=== PATIENT | female | born 1940 | race Caucasian/White ===

== ENCOUNTER 2017-10-14 13:00 | Inpatient (IN) | payer MEDICARE, SELFPAY ==
[2017-10-14] VITALS (10 sets, daily range): BP systolic 97–159; BP diastolic 54–91; PULSE 70–82; RESP 16–18; TEMP 35.2–36.4; O2SAT 94–100; BMI 29.9
--- NOTE | 2017-10-14 13:30 | HIP_PTH ---
PATIENT: EVELYN BYRNE LOC: MS3 U#:[id number] AGE/SX: 77/F ROOM: MS321 RE10/14/[address]: Dr. Danilo Yee DO : 1940 BED: 1 DIS: 10/16/2017 SPEC #: [id number] RECD: 10/14/17 18:09 STATUS: JULIA RERobin #: [id number] TRISTON: 10/14/17 13:[address]: Xander Tolentino DEPT: SURGICAL PATHOLOGY RECD BY: Jean Marie Maldonado ENTERED: 10/15/17 11:05 SP TYPE: TOTAL HIP OTHR DR: DO Dr. Shilo Greenberg MD Out of [facility] Doctor Tissues: Hip, NOS Procedures: Decalcification bone/plaque Surgery Specimen Level IV Comments: @ Ordering doctor for DEC edited from to DR.SWIDME Belcher by HETAL at 10/15/17 1452 @ Ordering doctor for SUIV edited from to @ by HETAL at 10/15/17 145 @ Submitting doctor edited from to @ by HETAL at 10/15/17 1452 HEADER OPERATION: Total hip anterior approach PRE-OP DIAGNOSIS: Fracture right hip TISSUE SUBMITTED: Bone and soft tissue MICROSCOPIC DIAGNOSIS Bone and soft tissue, right femoral head: Femoral head, detached pieces of bone and bone reamings with focal area of hemorrhage, clinically fractured right hip. VIRAJ:christine 10/22/17 MICROSCOPIC DESCRIPTION Slides are reviewed. GROSS DESCRIPTION Received is one container designated bone and soft tissue, right femoral head. The specimen consists of a jones femoral head. The femoral head measures 5 x 4.5 x 3.5 cm. The articular surface is smooth. The resection margin is irregular and hemorrhagic. Also present in the specimen container are multiple detached pieces of bone including bone reamings measuring in aggregate 9 x 7 x 3 cm. Glass Maker sections are submitted in three cassettes as follows: 1 ? bone reamings, 2 ? detached piece of bone, 3 ? femoral head after decalcification. / VIRAJ:christine 10/15/17 TC:5 CPT: 37547, 56319
[2017-10-14] MEDS: Celecoxib 200 MG Capsule 400 MG PO (13:50)
[2017-10-14] MEDS: Acetaminophen 500 MG Tablet 1000 MG PO ×2 (13:50→20:09)
--- NOTE | 2017-10-14 13:53 | SUR.PREOP ---
FC 16 FR INSERTED WITHOUT DIFFICULTY 800 CC DRAINED. PT ESDRAS WELL
[2017-10-14] MEDS: Scopolamine 1mg/72hr Patch 1 PATCH TD (14:15)
--- NOTE | 2017-10-14 14:47 | PCM.HP.STD ---
Problem List (1) Hypertension Status: Chronic (2) Anxiety Status: Chronic (3) Depression Status: Chronic (4) GERD (gastroesophageal reflux disease) Status: Chronic History of Present Illness Date of Admission: 10/14/17 Chief Complaint: Right hip pain The patient is a 77 year old F since the day after a fall at 4:00 this morning. 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 She woke up in the middle the night and tripped over 1 of the dogs beds sustaining a fall onto her right hip. Patient states she had progressive right hip pain and inability to ambulate or bear weight afterwards. She is a smoker who today had a tooth removed for infection. She no longer has pain or irritation at this site she was on amoxicillin for the abscess in the past as well. Turning the right hip pain today patient has pain in her groin which is worse with weightbearing better with immobilization and rest right now. Pain medicines are also helping. Pain is currently a 6 out of 10. She is otherwise active with bilateral knee pain and occasional right groin pain. Patient states she does water aerobics 3 times a week. She was recently on a trip to [place] where the stairs irritated her knee she does a lot of walking and stairs on her trips. Traveling is currently her passion. Patient has history of hypertension. Past Medical History Past Medical History (Chronic Problems): Chronic Problems Hypertension (Chronic) Anxiety (Chronic) Depression (Chronic) GERD (gastroesophageal reflux disease) (Chronic) Allergies gluten Allergy (Verified 10/14/17 13:21) Other JENNIFER Inhibitors Adverse Reaction (Verified 10/14/17 13:21) Other codeine Adverse Reaction (Verified 10/14/17 13:22) Other Home Medications: Ambulatory Orders Medication Instructions Recorded Aspirin [Aspirin EC] 81 mg PO DAILY 10/14/17 B12/Levomefolate Calcium/B-6 1,000 mcg PO DAILY 10/14/17 [Folbic Rf Tablet] Cholecalciferol (Vitamin D3) 1,000 unit PO QODAY 10/14/17 [Vitamin D3] Clonazepam [Klonopin] 0.5 mg PO BREAKFAST 10/14/17 Clonazepam [Klonopin] 0.5 mg PO Q6H PRN PRN 10/14/17 Clonazepam [Klonopin] 1 mg PO QHS 10/14/17 Esomeprazole Mag Trihydrate 40 mg PO DAILY 10/14/17 [Nexium] Folic Acid 1,600 mg PO DAILY 10/14/17 Losartan Potassium 25 mg PO DAILY 10/14/17 Metoprolol Succinate 50 mg PO BID 10/14/17 Nortriptyline HCl 150 mg PO QHS 10/14/17 Surgical History: no surgical history Psychiatric History: Depression Lives: Alone - 2 large dogs Smoking Status: Heavy Smoker (>10/day) Tobacco Use: Cigarettes Alcohol: None Drugs: None Review of Systems Constitutional: Denies: Anorexia, Chills, Fever, Night Sweats Eyes: Denies: Blurred vision HEENT: Denies: Head Aches, Sinus Congestion, Sinus Drainage Cardiovascular: Denies: Chest Pain Respiratory: Denies: Cough, Shortness of breath upon exertion Gastrointestinal: Denies: Abdominal Pain, Diarrhea Genitourinary: Denies: Dysuria, Frequency Musculoskeletal: Reports: - - see hpi Skin: Denies: Rash, Wounds Neurological: Denies: Numbness, Tingling, Focal weakness Psychiatric: Denies: Anxiety Hematologic/ Lymphatic: Denies: Easy Bruising, Easy Bleeding VTE Information - Inpt Only VTE Present on Admission: No VTE Mechan Device Prophylaxis: SCD's, Thigh High ENMANUEL Hose VTE Pharm Prophylaxis ordered?: Yes Objective: Right hip and pelvis radiographs were reviewed today showing a displaced transcervical femoral neck fracture Garden type IV with evidence of joint space narrowing osteophyte formation and subchondral cyst formation as well as subchondral sclerosis in the joint consistent with chronic moderate osteoarthritis. - Physical Exam General: Alert, Oriented x3, Cooperative HEENT: Atraumatic Oral: - - poor lower dentition. No open sores or active infections. Neck: No JVD Lungs: - - Nonlabored breathing Cardiovascular: Regular rate Abdomen: Non-Distended Extremities: - - Right lower extremity: Skin clean, dry, and intact. Limb is shortened and externally rotated Motor is intact dorsiflexion, EHL and plantar flexion. Sensation is intact to light touch saphenous, kenzie,l superficial peroneal, deep peroneal and tibial distributions. Calves are soft and supple. Skin: No rashes Musculoskeletal: Tenderness - Right hip Psych/Mental Status: Normal Affect Vital Signs Temp Pulse Resp BP Pulse Ox 97.3 F L 80 18 151/80 H 95 10/14/17 13:46 10/14/17 13:46 10/14/17 13:46 10/14/17 13:46 10/14/17 13:46 Oxygen Delivery Method Room Air Weight: 186 lb Body Mass Index (BMI) 29.9 Assessment/Plan 1. Right hip osteoarthritis 2. Right hip transcervical displaced femoral neck fracture Treatment options were discussed the patient. At this time based on the fracture pattern patient's age and activity level I recommended open treatment for the fracture. Treatment options discussed the patient included open reduction internal fixation, hemiarthroplasty and total hip replacement on the right. Based on her radiographic findings consistent with subchondral sclerosis, joint space narrowing and subchondral cyst formation as well as osteophytes as well as her activity level I recommended a right total hip replacement. We will during the acute nature because of the fracture. Patient understands there are inherent risks with arthroplasty surgery including but not limited to blood loss, DVTs, PEs, neurovascular damage, infection, general risk of anesthesia including loss of life and dislocations. Patient understands these risks are elevated in the face of her fracture. Despite this she would like to proceed with right total hip replacement today. Medicine see her to confirm medical appropriateness for surgery. Patient will be given preoperative antibiotics. She is currently n.p.o. We will also order TXA for surgery. [facility] Office:
[2017-10-14] MEDS: Cefazolin 2 GM in 0.9% Normal Saline 100 ML IV (16:00)
--- NOTE | 2017-10-14 17:39 | OP.PCM_ITS ---
Problem List (1) Hypertension Status: Chronic (2) Anxiety Status: Chronic (3) Depression Status: Chronic (4) GERD (gastroesophageal reflux disease) Status: Chronic Report of Operation Date of Procedure: 10/14/17 Pre-Operative Diagnosis: 1. Right hip primary osteoarthritis. 2. Right hip displaced transcervical femoral neck fracture Post-Operative Diagnosis: 1. Right hip primary osteoarthritis. 2. Right hip displaced transcervical femoral neck fracture Surgery/Procedure Performed:: Right direct anterior total hip replacement Description of Surgical Findings:: Stable hip with equal leg lengths. Should be noted that intraoperatively the joint was noted to have significant cartilage wear consistent with osteoarthritis. cartridge filler: Danny Sharma Type of Anesthesia:: General Anesthesiologist: Justin Goetz Special Medications: 2 g Ancef, 1 g TXA at incision, 1 g TXA closure, joint cocktail (5 mg Duramorph, 30 mL of 0.5% Ropivicaine, 1000 units of epinephrine, 30 mg of Toradol) Specimen's removed: Femoral head fracture Estimated Blood Loss (mL): 200 Fluids Replaced: 800 Description of Procedure: Components used: 1. Accolade 2 Niraj femoral stem size 5 127? 2. [place] trident acetabular shell size 50 mm 3. Niraj X3 polyethylene D 4. [place] Biolox delta 36mm, -2.5mm femoral head Brief history operative indications: 77 yo female who presented after a fall early this morning with history of right groin pain and acute fall and inability to bear weight. X-rays were consistent with osteoarthritis including joint space narrowing, osteophyte formation and subchondral cysts with acute displaced femoral neck fracture. Total hip replacement was discussed with the patient with risks and benefits including but not limited to blood loss, DVTs, PEs, neurovascular damage, dislocation, general risks of anesthesia including loss of life. Patient demonstrated an understanding medical clearance is obtained the patient was consented for surgery. Procedure: On the date of procedure the patient's R hip was marked in the preoperative area. Patient was then taken back to the operating room where anesthesia assumed control of the C-spine and airway and administered anesthetic. Patient was transferred to the operating table and placed in the supine position. The hips were placed at the break of the bed and a sacral bump was placed. The R lower extremity was then prepped out in a sterile fashion using chlorhexidine while the surgeon scrubbed. The PA was vital in the positioning of the patient. Upon reentering the room the R lower extremity was draped in the standard orthopedic fashion and the incision was marked. A timeout was called and everyone agreed upon the side, the site, the procedure be performed, antibody given, and patient's identity. At this time incision was made through skin, subcutaneous tissue, and fat down to fascia. The fascia was then incised and the TFL was retracted laterally. A retractor was placed on the lateral border of the femoral neck. Attention was directed to the inferior portion of the approach and all crossing vessels were identified and appropriately coagulated. A retractor was then placed on the medial portion of the femoral neck. The anterior capsule was then cleared of all soft tissue and then H shaped capsulotomy was made. The retractors were then placed inside the capsule. The femoral neck was identified and a cleanup cut was made. At this time a power corkscrew was used to remove the femoral head. Attention was then turned toward the acetabulum where the soft tissues were appropriately retracted and the acetabulum was sequentially reamed to 49 mm. A 50 mm cup was then selected and impacted into place. Acetabular liner was impacted into place and locking mechanism was verified. Attention was then turned to the femur. Soft tissue releases on the medial and lateral femoral neck were appropriately done, the leg was externally rotated and lateralized. A Myers retractor was placed medially and proximally to the greater trochanter this allowed appropriate visualization and exposure of the femoral canal. Rongeour was then used to remove excess lateral bone. A canal finder and entry broach were used to open the proximal canal. Once we verified we were down the femoral canal we subsequently broached up to a size 5 femur. The appropriate neck was placed in the previously selected head was trialed with a -2.5 mm neck. Traction was pulled and the hip was reduced with internal rotation. Once it was appropriately reduced and stability was checked. There was minimal shuck, equal leg lengths and appropriate stability with hyperextension and external rotation as well as with 90? flexion and internal rotation. The trial components were then dislocated the proximal femur was again exposed and the components were removed from the wound. The final components were verified and opened. The wound was copiously irrigated out with normal saline. The acetabulum was checked for any residual debris. The final components were placed and impacted. Traction and internal rotation were again used to reduce the hip. After adequate reduction the hip remained stable with appropriate leg lengths. The final components were once again checked with live fluoroscopy and were found to be satisfactory. The wound was then copiously irrigated with normal saline once more, and hemostasis was obtained. Closure was then done using #1 Vicryl runner to close the fascia. A 2-0 vicryl interuppted sutures were used to close the subcutaneous skin. A 3-0 Monocryl and Steri-Strips were used for final skin closure. A Silverlon dressing was placed. Patient was awakened by anesthesia and transferred to the [facility]. Patient was then transferred to the PACU for recovery. Postoperative plan: Patient will get 24 hours postop antibiotics. Patient will get in-house physical therapy and will be weight-bear as tolerated. Patient will follow up in office in 2 weeks for a wound check and x-rays. During the course of the procedure the physician assistant boys track coach played a vital role. His intimate knowledge of my steps in the procedure aided in safe and expedient completion of the procedure. The PA played a vital rolls in positioning particularly in obtaining the appropriate positioning of the sacral bump. The PA was also vital in the retraction of soft tissues during the exposure and especially the femoral work as this is a vital part of the procedure to prevent complications and fractures. The PA was also vital and protecting soft tissues during times of bony cuts and reaming. He also played a vital role in closure with my direct supervision. The PA was also important during reduction and dislocation of the joint and trials intraoperatively. Grafts/Implants Used: Niraj Accolade 2 - Complications none - Admit VTE Documentation VTE Present on Admission: No VTE Mechan Device Prophylaxis: SCD's, Thigh High ENMANUEL Hose VTE Pharm Prophylaxis ordered?: Yes
--- NOTE | 2017-10-14 18:30 | RAD_ITS ---
STUDY: X-RAY - PELVIS AND RIGHT HIP REASON FOR EXAM: Female, 77 years old. Right hip postop. TECHNIQUE: Radiological exam, hip, unilateral, with pelvis when performed; 2 or 3 views. COMPARISON: None. FINDINGS: There is a right hip arthroplasty in place that is grossly anatomic in alignment. There is subcutaneous emphysema overlying the right hip consistent with recent surgical intervention. No suspicious bony lesions are seen. There are mild degenerative changes of the pubic symphysis. RAD/Hip Min 2 Views (Portable) IMPRESSION: Status post right hip arthroplasty that appears grossly anatomic in alignment. Electronically Signed: Kiya Brasher MD at 19:22 EST Tel , Service support ,
[2017-10-14] MEDS: clonazePAM 1 MG Tablet PO (20:09)
[2017-10-14] MEDS: Aspirin 325 MG Tablet PO (20:09)
[2017-10-14] MEDS: Metoprolol(XL)Succ 50 MG Tablet PO (20:09)
[2017-10-14] MEDS: Lactated Ringers 1,000 ML 125 ML IV (20:12)
--- NOTE | 2017-10-14 22:20 | PCM.PROGNOTE ---
Subjective: Patient was seen and examined today in preop at [facility], she was transferred from [facility] today after sustaining a hip fracture at home, patient stated that her foot got caught under a dog bed and she fell backwards landing on her right hip. Patient stated that there was external rotation of her right hip and she was unable to stand on her right hip. Evaluation of the patient and [facility] revealed the patient's right hip to be fractured, Dr. Tolentino was contacted and the patient was transferred to [facility] to be admitted under Dr. Tolentino's service but the list service was asked to clear her for surgery today before her surgery. Patient was seen and examined in preop and surgery today at approximately 1:30 PM, patient was alert and appropriate, medical history was obtained from the patient-she has a history of anxiety and depression as well as hypertension. Patient's labs were reviewed, she had a leukocytosis with an elevated white blood cell count of approximately 20,000, EKG showed a normal sinus rhythm with first-degree AV block. Chest x-ray showed no active disease per read out of the emergency room physician at [facility]. On examination, heart rate and rhythm is regular, no ectopic beats were noted, no murmurs were auscultated, lungs are clear bilaterally apex to base, right leg was noted to be externally rotated and tender to palpation over the right hip area. Abdomen was soft, bowel sounds are present in all 4 quadrants, I felt the patient was stable to undergo surgery at this time, we will follow postoperatively for medical care. - Physical Exam General: Alert, Oriented x3, Cooperative, Well developed, Well nourished HEENT: Atraumatic, PERRLA, EOMI, Normocephalic Oral: Moist Mucosa Neck: Supple, No JVD, Negative Carotid Bruits, No Nuchal Rigidity, Trachea Midline, Thyroid Normal Size and Texture Lungs: Clear to auscultation, Normal air movement, No rhonchi, No wheeze, No rales Cardiovascular: Regular rate, Regular Rhythm, Normal S1, Normal S2, No murmurs, No Ectopic Activity, PMI Normal, No rub noted, No Gallop Abdomen: Bowel Sounds Present, Soft, Non Tender, Non-Distended, No hernias noted Extremities: No clubbing, No cyanosis, No edema, Capillary Refill Less than 3 Seconds, Tenderness - Tenderness to palpation noted over the right hip area, - - Right leg is externally rotated Skin: No rashes, No breakdown Musculoskeletal: No Tenderness to Palpation of Joints or Extremities Neurological: Cranial nerves II-XII grossly intact, Neuro grossly intact, Sensory exam intact to light touch and pain, Coordination normal Psych/Mental Status: Normal Affect, Appropriate, Alert and oriented to time, place, person, mood and affect Vital Signs Temp Pulse Resp BP Pulse Ox 97.5 F L 81 18 133/75 H 97 10/14/17 21:48 10/14/17 21:48 10/14/17 21:48 10/14/17 21:48 10/14/17 21:48 Oxygen Flow Rate 2 Oxygen Delivery Method Room Air Weight: 84.368 kg Body Mass Index (BMI) 29.9 Intake and Output for Last 24 Hours 10/12/17 10/13/17 10/14/17 23:59 23:59 23:59 Intake Total 1200 / 1200 Output Total 900 / 900 Balance 300 / 300 Assessment/Plan #1 hypertension-continue patient's home medications postop #2 anxiety-continue patient's medications postop #3 depression-continue patient's medications postop #4 history of cardiac [id number] is been worked up in the past and the patient has had stress tests which were negative, I was able to review one which was done in 2014. Patient also had an echocardiogram stress test which showed a normal EF. Patient takes Toprol #5 right hip transcervical displaced femoral neck fracture-again patient stable for surgery at this time, patient is to undergo a right total hip replacement due to significant osteoarthritis in the right hip #6 osteoarthritis Code Visit Inpatient E&M: 11773 Subs Hosp L2
--- NOTE | 2017-10-14 22:30 | PN_ITS ---
Subjective: Patient was seen and examined today in preop at [facility], she was transferred from [facility] today after sustaining a hip fracture at home , patient stated that her foot got caught under a dog bed and she fell backwards landing on her right hip. Patient stated that there was external rotation of her right hip and she was unable to stand on her right hip. Evaluation of the patient and [facility] revealed the patient's right hip to be fractured, Dr. Tolentino was contacted and the patient was transferred to [facility] to be admitted under Dr. Tolentino's service but the list service was asked to clear her for surgery today before her surgery. Patient was seen and examined in preop and surgery today at approximately 1:30 PM, patient was alert and appropriate, medical history was obtained from the patient-she has a history of anxiety and depression as well as hypertension. Patient's labs were reviewed, she had a leukocytosis with an elevated white blood cell count of approximately 20,000, EKG showed a normal sinus rhythm with first-degree AV block. Chest x-ray showed no active disease per read out of the emergency room physician at [facility]. On examination, heart rate and rhythm is regular, no ectopic beats were noted, no murmurs were auscultated, lungs are clear bilaterally apex to base, right leg was noted to be externally rotated and tender to palpation over the right hip area. Abdomen was soft, bowel sounds are present in all 4 quadrants, I felt the patient was stable to undergo surgery at this time, we will follow postoperatively for medical care. - Physical Exam General: Alert, Oriented x3, Cooperative, Well developed, Well nourished HEENT: Atraumatic, PERRLA, EOMI, Normocephalic Oral: Moist Mucosa Neck: Supple, No JVD, Negative Carotid Bruits, No Nuchal Rigidity, Trachea Midline, Thyroid Normal Size and Texture Lungs: Clear to auscultation, Normal air movement, No rhonchi, No wheeze, No rales Cardiovascular: Regular rate, Regular Rhythm, Normal S1, Normal S2, No murmurs, No Ectopic Activity, PMI Normal, No rub noted, No Gallop Abdomen: Bowel Sounds Present, Soft, Non Tender, Non-Distended, No hernias noted Extremities: No clubbing, No cyanosis, No edema, Capillary Refill Less than 3 Seconds, Tenderness - Tenderness to palpation noted over the right hip area, - - Right leg is externally rotated Skin: No rashes, No breakdown Musculoskeletal: No Tenderness to Palpation of Joints or Extremities Neurological: Cranial nerves II-XII grossly intact, Neuro grossly intact, Sensory exam intact to light touch and pain, Coordination normal Psych/Mental Status: Normal Affect, Appropriate, Alert and oriented to time, place, person, mood and affect Vital Signs Temp Pulse Resp BP Pulse Ox 97.5 F L 81 18 133/75 H 97 10/14/17 21:48 10/14/17 21:48 10/14/17 21:48 10/14/17 21:48 10/14/17 21:48 Oxygen Flow Rate 2 Oxygen Delivery Method Room Air Weight: 84.368 kg Body Mass Index (BMI) 29.9 Intake and Output for Last 24 Hours 10/12/17 10/13/17 10/14/17 23:59 23:59 23:59 Intake Total 1200 / 1200 Output Total 900 / 900 Balance 300 / 300 Assessment/Plan #1 hypertension-continue patient's home medications postop #2 anxiety-continue patient's medications postop #3 depression-continue patient's medications postop #4 history of cardiac [id number] is been worked up in the past and the patient has had stress tests which were negative, I was able to review one which was done in 2014. Patient also had an echocardiogram stress test which showed a normal EF. Patient takes Toprol #5 right hip transcervical displaced femoral neck fracture-again patient stable for surgery at this time, patient is to undergo a right total hip replacement due to significant osteoarthritis in the right hip #6 osteoarthritis Code Visit Inpatient E&M: 93976 Subs Hosp L2
[2017-10-15 00:51] VITALS: BP 104/60; PULSE 86; RESP 16; TEMP 36.7; O2SAT 98
[2017-10-15] MEDS: Acetaminophen 500 MG Tablet 1000 MG PO ×3 (04:23→20:39)
[2017-10-15 06:19] LABS: Hematocrit 32.2 % (37-47); Hemoglobin 10.8 g/dl (12.0-15.0); Mean Corp Hgb Conc 33.5 g/gl (32-36); Mean Corpuscular Hgb 29.3 pg (27.0-32.0); Mean Corpuscular Volume 87.5 fL (81-99); Mean Platelet Vol. 9.7 fl (6.2-12.0); Platelet Count 336 K/mm3 (150-450); RBC Distribution Width CV 12.6 % (11.6-14.6); RBC Distribution Width SD 39.3 fl (35.1-43.9); Red Blood Count 3.68 M/mm3 (4.2-5.4); White Blood Count 15.6 K/mm3 (4.4-11.0)
[2017-10-15 06:25] LABS: Anion Gap 7 (5-15); BUN 12 mg/dL (7-18); BUN/Creat Ratio 13.7 RATIO (10-20); Calcium,Total 8.2 mg/dL (8.5-10.1); Chloride 99 mmol/L (98-107); Creatinine, Serum 0.88 mg/dL (0.55-1.02); EST Glomerular Filtration Rate 67 mL/min (>60); Est Glom Filt Rate - Afr Amer 81 mL/min (>60); Estimated Creatinine Clearance 51.71 ml/min; Glucose 139 mg/dL (74-106); Potassium 4.2 mmol/L (3.5-5.1); Sodium Level 133 mmol/L (136-145)
[2017-10-15 06:28] LABS: Scan Indicated on CBC? Y/N NO
--- NOTE | 2017-10-15 06:32 | NURSING ---
Talked to KALPANA Nicholas about an official consult on this pt for the hospitalist. Dr. Fisher asked me last night to put an official consult in but I thought it should be entered by the physician who requested it. Cristopher will talk to Dr. Tolentino around 0800 and have him enter it.
--- NOTE | 2017-10-15 07:32 | PN.ORTHO_ITS ---
Subjective: The patient was sitting in bed upon examination. Patient denies any chest pain , shortness of breath, dizziness, lightheadedness, or calf pain. Patient did have postoperative nausea and vomiting. Pain is controlled on medications. No adverse overnight events. Plan will be for discharge home with home health physical therapy when medically ready. Objective: Vital signs stable and afebrile. Patient is able to plantarflex and dorsiflex actively. Sensation is intact to light touch to saphenous, sural, superficial and deep peroneal, and tibial distribution. Dressing is clean dry and intact. Negative Homans bilaterally, negative signs and symptoms of DVT. - Physical Exam General: Alert, Oriented x3, Cooperative, No apparent distress Vital Signs Temp Pulse Resp BP Pulse Ox 98.0 F 86 16 104/60 98 10/15/17 00:51 10/15/17 00:51 10/15/17 00:51 10/15/17 00:51 10/15/17 00:51 Oxygen Flow Rate 2 Oxygen Delivery Method Room Air Weight: 84.368 kg Body Mass Index (BMI) 29.9 Intake and Output for Last 24 Hours 10/13/17 10/14/17 10/15/17 23:59 23:59 23:59 Intake Total 1200 / 1200 Output Total 900 / 900 800 / 800 Balance 300 / 300 -800 / -800 Laboratory Tests Past 24 Hrs 10/15/17 10/15/17 05:25 05:25 WBC 15.6 H RBC 3.68 L Hgb 10.8 L Hct 32.2 L MCV 87.5 MCH 29.3 MCHC 33.5 RDW 12.6 RDW Differential 39.3 Plt Count 336 MPV 9.7 Sodium 133 L Potassium 4.2 Chloride 99 Carbon Dioxide 27.0 Anion Gap 7 BUN 12 Creatinine 0.88 Estim Creat Clear Calc 51.71 Est GFR (MDRD) Af Amer 81 Est GFR (MDRD) Non-Af 67 BUN/Creatinine Ratio 13.7 Glucose 139 H Calcium 8.2 L Assessment/Plan 1. S/P right total hip arthroplasty due to right hip displaced transcervical femoral neck fracture POD #1 2. Continue Pain Medications: Tylenol and OxyIR 3. DVT Prophylaxis: Aspirin 325 mg twice daily 4. PT/OT: Bearing as tolerated 5. H & H: 10.8/32.2, asymptomatic 6. Leukocytosis: Currently 15.6, afebrile. Patient did receive Decadron intraoperatively 7. Encouraged Incentive Spirometry 8. Continue postoperative medical management per medicine 9. Disposition: Plan will be for discharge home possibly tomorrow with home health therapy. Case management will be involved with assisting.
[2017-10-15 08:29] VITALS: BP 120/72; PULSE 87; RESP 18; TEMP 36.8; O2SAT 97
[2017-10-15] MEDS: Pantoprazole Sodium 40 MG Tablet PO (08:30)
[2017-10-15 08:31] VITALS: PULSE 87
[2017-10-15] MEDS: Losartan Potassium 25 MG Tablet PO (08:31)
[2017-10-15] MEDS: Aspirin 325 MG Tablet PO ×2 (08:31→16:53)
[2017-10-15] MEDS: Metoprolol(XL)Succ 50 MG Tablet PO ×2 (08:31→20:39)
[2017-10-15] MEDS: clonazePAM 0.5 MG Tablet PO (08:39)
--- NOTE | 2017-10-15 10:13 | CASEMGMT ---
Social Work Note Pt is alert and oriented x4. Presents with pleasant affect as evidenced by smiling and willingness to participate in assessment, along with futuristic outlook. No visitors present and pt able to complete assessment independently. Introduced self and role at [facility]. Reports to live alone in a one story home with a basement. All necessities are on the first level however. Pt does have two large dogs at home. 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 Pt is primarily independent with ADL's, but her brother and sister in law will be staying with her for her first few days home. She will also have the assistance of her tablet making machine operator helper who will check in daily. Requesting C for PT/OT and aide services. Informed that this would not be 24/7 or even daily care, and pt expresses understanding. DME consists of a cane, and pt anticipates needing a walker and elevated toilet riser with hand rails at discharge. Updated RN DANIE Stafford. Plan: Home with HHC for PT/OT and aide services. Татьяна Lee, MANUSCRIPT READER, WEB MACHINE TENDER
--- NOTE | 2017-10-15 11:45 | PCM.PN.HOSP ---
Subjective: Patient states that she does not know why we, the hospitalists, are involved in her care. Ask if she can get a nortriptyline level drawn here because she gets that checked routinely. No other complaints. Other than she is concerned about her medications being as prescribed as she takes them at home which she states that she takes a Klonopin in the afternoon and then at nights and all her other medications at night. Vitals/I&O's: Vital Signs Temp Pulse Resp BP Pulse Ox 36.8 C 87 18 120/72 97 10/15/17 08:29 10/15/17 08:31 10/15/17 08:29 10/15/17 08:29 10/15/17 08:29 Oxygen Flow Rate 2 Oxygen Delivery Method Room Air Weight: 84.368 kg Body Mass Index (BMI) 29.9 Intake and Output for Last 24 Hours 10/13/17 10/14/17 10/15/17 23:59 23:59 23:59 Intake Total 1200 / 1200 600 / 600 Output Total 900 / 900 800 / 800 Balance 300 / 300 -200 / -200 General: Alert, - - Up in chair HEENT: Atraumatic, Normocephalic Laboratory Results 10/15/17 05:25: WBC 15.6 H, RBC 3.68 L, Hgb 10.8 L, Hct 32.2 L, MCV 87.5, MCH 29.3, MCHC 33.5, RDW 12.6, RDW Differential 39.3, Plt Count 336, MPV 9.7 10/15/17 05:25: Sodium 133 L, Potassium 4.2, Chloride 99, Carbon Dioxide 27.0, Anion Gap 7, BUN 12, Creatinine 0.88, Estim Creat Clear Calc 51.71, Est GFR (MDRD) Af Amer 81, Est GFR (MDRD) Non-Af 67, BUN/Creatinine Ratio 13.7, Glucose 139 H, Calcium 8.2 L Current Medications Acetaminophen (Tylenol) 1,000 mg PO Q8 [facility] Last Admin: 10/15/17 04:23 Dose: 1,000 mg Aspirin (Aspirin) 325 mg PO BIDCM [facility] Last Admin: 10/15/17 08:31 Dose: 325 mg Clonazepam (Klonopin) 0.5 mg PO BREAKFAST [facility] Last Admin: 10/15/17 08:39 Dose: 0.5 mg Clonazepam (Klonopin) 0.5 mg PO Q6H PRN PRN PRN Reason: ANXIETY Clonazepam (Klonopin) 1 mg PO QHS [facility] Last Admin: 10/14/17 20:09 Dose: 1 mg Ketorolac Tromethamine (Toradol) 15 mg IV Q6H PRN PRN PRN Reason: MILD-MOD PAIN (1-5/10) Stop: 10/19/17 16:00 Losartan Potassium (Cozaar) 25 mg PO DAILY [facility] Last Admin: 10/15/17 08:31 Dose: 25 mg Metoprolol Succinate (Toprol Xl (Beta Javier)) 50 mg PO BID [facility] Last Admin: 10/15/17 08:31 Dose: 50 mg Morphine Sulfate (Morphine) 2 - 4 mg IV Q2H PRN PRN PRN Reason: SEVERE PAIN (6-10/10) Morphine Sulfate (Morphine) 2 - 4 mg IV Q2H PRN PRN PRN Reason: SEVERE PAIN (6-10/10) Nortriptyline HCl (Pamelor) 125 mg PO QHS [facility] Nutritional Formula (Lactose Free) (Ensure Clear) 120 ml PO TIDCM [facility] Last Admin: 10/15/17 11:18 Dose: 120 ml Ondansetron HCl (Zofran) 4 mg IV Q8H PRN PRN PRN Reason: NAUSEA Oxycodone HCl (Oxyir) 5 - 10 mg PO Q4H PRN PRN PRN Reason: MOD-SEVERE PAIN (4-10/10) Pantoprazole Sodium (Protonix) 40 mg PO DAILY [facility] Last Admin: 10/15/17 08:30 Dose: 40 mg Promethazine HCl (Phenergan (Ll)) 12.5 mg IM Q6H PRN PRN; Protocol PRN Reason: NAUSEA/VOMITING Sodium Chloride () 5 - 30 ml IV UD PRN PRN Reason: SALINE FLUSH Assessment/Plan . Right hip fracture Status post right anterior total hip replacement Management per orthopedics 2. anxiety Requesting nortriptyline level given the fact that she is on patient. I told her that I would happily order it but is most likely send out in the results of which would not be available for several days. Patient's expressed understanding and that she can obtain this information through her primary care doctor. 3. Leukocytosis Likely reactive No evidence of any fevers at this time. 4. DVT prophylaxis as prescribed by orthopedics which is aspirin 325 mg twice daily Patient is medically stable for discharge. I will order the nortriptyline level but that will not be back by the time she is discharged. Medicine service signing off. Please do not hesitate to reconsult if new medical issues do arise. Code Visit Inpatient E&M: 96498 Subs Hosp L1
--- NOTE | 2017-10-15 11:50 | PN_ITS ---
Subjective: Patient states that she does not know why we, the hospitalists, are involved in her care. Ask if she can get a nortriptyline level drawn here because she gets that checked routinely. No other complaints. Other than she is concerned about her medications being as prescribed as she takes them at home which she states that she takes a Klonopin in the afternoon and then at nights and all her other medications at night. Vitals/I&O's: Vital Signs Temp Pulse Resp BP Pulse Ox 36.8 C 87 18 120/72 97 10/15/17 08:29 10/15/17 08:31 10/15/17 08:29 10/15/17 08:29 10/15/17 08:29 Oxygen Flow Rate 2 Oxygen Delivery Method Room Air Weight: 84.368 kg Body Mass Index (BMI) 29.9 Intake and Output for Last 24 Hours 10/13/17 10/14/17 10/15/17 23:59 23:59 23:59 Intake Total 1200 / 1200 600 / 600 Output Total 900 / 900 800 / 800 Balance 300 / 300 -200 / -200 General: Alert, - - Up in chair HEENT: Atraumatic, Normocephalic Laboratory Results 10/15/17 05:25: WBC 15.6 H, RBC 3.68 L, Hgb 10.8 L, Hct 32.2 L, MCV 87.5, MCH 29.3, MCHC 33.5, RDW 12.6, RDW Differential 39.3, Plt Count 336, MPV 9.7 10/15/17 05:25: Sodium 133 L, Potassium 4.2, Chloride 99, Carbon Dioxide 27.0, Anion Gap 7, BUN 12, Creatinine 0.88, Estim Creat Clear Calc 51.71, Est GFR ( MDRD) Af Amer 81, Est GFR (MDRD) Non-Af 67, BUN/Creatinine Ratio 13.7, Glucose 139 H, Calcium 8.2 L Current Medications Acetaminophen (Tylenol) 1,000 mg PO Q8 [facility] Last Admin: 10/15/17 04:23 Dose: 1,000 mg Aspirin (Aspirin) 325 mg PO BIDCM [facility] Last Admin: 10/15/17 08:31 Dose: 325 mg Clonazepam (Klonopin) 0.5 mg PO BREAKFAST [facility] Last Admin: 10/15/17 08:39 Dose: 0.5 mg Clonazepam (Klonopin) 0.5 mg PO Q6H PRN PRN PRN Reason: ANXIETY Clonazepam (Klonopin) 1 mg PO QHS [facility] Last Admin: 10/14/17 20:09 Dose: 1 mg Ketorolac Tromethamine (Toradol) 15 mg IV Q6H PRN PRN PRN Reason: MILD-MOD PAIN (1-5/10) Stop: 10/19/17 16:00 Losartan Potassium (Cozaar) 25 mg PO DAILY [facility] Last Admin: 10/15/17 08:31 Dose: 25 mg Metoprolol Succinate (Toprol Xl (Beta Javier)) 50 mg PO BID [facility] Last Admin: 10/15/17 08:31 Dose: 50 mg Morphine Sulfate (Morphine) 2 - 4 mg IV Q2H PRN PRN PRN Reason: SEVERE PAIN (6-10/10) Morphine Sulfate (Morphine) 2 - 4 mg IV Q2H PRN PRN PRN Reason: SEVERE PAIN (6-10/10) Nortriptyline HCl (Pamelor) 125 mg PO QHS [facility] Nutritional Formula (Lactose Free) (Ensure Clear) 120 ml PO TIDCM [facility] Last Admin: 10/15/17 11:18 Dose: 120 ml Ondansetron HCl (Zofran) 4 mg IV Q8H PRN PRN PRN Reason: NAUSEA Oxycodone HCl (Oxyir) 5 - 10 mg PO Q4H PRN PRN PRN Reason: MOD-SEVERE PAIN (4-10/10) Pantoprazole Sodium (Protonix) 40 mg PO DAILY [facility] Last Admin: 10/15/17 08:30 Dose: 40 mg Promethazine HCl (Phenergan (Ll)) 12.5 mg IM Q6H PRN PRN; Protocol PRN Reason: NAUSEA/VOMITING Sodium Chloride () 5 - 30 ml IV UD PRN PRN Reason: SALINE FLUSH Assessment/Plan . Right hip fracture * Status post right anterior total hip replacement * Management per orthopedics 2. anxiety * Requesting nortriptyline level given the fact that she is on patient. I told her that I would happily order it but is most likely send out in the results of which would not be available for several days. Patient's expressed understanding and that she can obtain this information through her primary care doctor. 3. Leukocytosis * Likely reactive * No evidence of any fevers at this time. 4. DVT prophylaxis as prescribed by orthopedics which is aspirin 325 mg twice daily Patient is medically stable for discharge. I will order the nortriptyline level but that will not be back by the time she is discharged. Medicine service signing off. Please do not hesitate to reconsult if new medical issues do arise. Code Visit Inpatient E&M: [id number] Subs Hosp L1
[2017-10-15 14:54] VITALS: BP 121/73; PULSE 75; RESP 18; TEMP 36.7; O2SAT 98
[2017-10-15] MEDS: Mag Hydrox/Al Hydrox/Simeth 30 ML UDC PO ×2 (15:13→21:28)
[2017-10-15 20:39] VITALS: BP 129/63; PULSE 80
[2017-10-15] MEDS: Nortriptyline 25 MG Capsule 125 MG PO (20:39)
[2017-10-15] MEDS: clonazePAM 1 MG Tablet PO (20:39)
[2017-10-15 20:43] VITALS: BP 129/63; PULSE 77; RESP 18; TEMP 36.6; O2SAT 999
[2017-10-16 05:04] VITALS: BP 115/68; PULSE 78; RESP 16; TEMP 36.7; O2SAT 97
--- NOTE | 2017-10-16 07:01 | PCM.PN.ORT ---
Subjective: The patient was sitting in bed upon examination. Patient denies any chest pain, shortness of breath, dizziness, lightheadedness, nausea or vomiting, or calf pain. She has not had anymore nausea and vomiting. Pain is controlled on medications. She is currently only using Tylenol for pain control. No adverse overnight events. She does complain of swelling in the right thigh. Objective: Vital signs stable and afebrile. Patient is able to plantarflex and dorsiflex actively. Sensation is intact to light touch to saphenous, sural, superficial and deep peroneal, and tibial distribution. Dressing is clean dry and intact. Swelling to right thigh, soft and supple Negative Homans bilaterally, negative signs and symptoms of DVT. - Physical Exam General: Alert, Oriented x3, Cooperative, No apparent distress Vital Signs Temp Pulse Resp BP Pulse Ox 98.0 F 78 16 115/68 97 10/16/17 05:04 10/16/17 05:04 10/16/17 05:04 10/16/17 05:04 10/16/17 05:04 Oxygen Flow Rate 2 Oxygen Delivery Method Room Air Weight: 84.368 kg Body Mass Index (BMI) 29.9 Intake and Output for Last 24 Hours 10/14/17 10/15/17 10/16/17 23:59 23:59 23:59 Intake Total 1200 / 1200 600 / 600 Output Total 900 / 900 800 / 800 Balance 300 / 300 -200 / -200 Assessment/Plan 1. S/P right total hip arthroplasty due to right hip displaced transcervical femoral neck fracture POD #2 2. Continue Pain Medications: Tylenol and OxyIR 3. DVT Prophylaxis: Aspirin 325 mg twice daily 4. PT/OT: Bearing as tolerated 5. H & H: No labs drawn at this time, will check on labs prior to discharge. Asymptomatic 6. Leukocytosis: Currently 15.6 yesterday, afebrile. Patient did receive Decadron intraoperatively 7. Encouraged Incentive Spirometry 8. Continue postoperative medical management per medicine 9. Disposition: Orthopedically stable, plan will be for discharge home today. Will check on lab work prior to discharge. Prescriptions are attached to chart. Patient currently is not using anything but Tylenol for pain control. She will be given a prescription of oxycodone to take with her. She will schedule a follow-up with [facility] Dr. Alek Tolentino in 10-12 days.
--- NOTE | 2017-10-16 07:10 | PCM.DC.THR ---
Discharge Diet: No Restrictions Discharge Activity: May Not Drive - while taking narcotic pain medications. May shower in (days): 1 - only if incision is dry and without drainage. Do NOT soak/submerge in tub/pool/mendez/stream/hot tub. Weight Bearing Status: Weight bearing as tolerated Additional Activity Instructions:: Wear elastic stockings for 2 weeks. DO NOT use alcohol with narcotic pain medication. DO NOT make important decisions while taking narcotic medication. If you have problems with taking your medication (rash, itching, nausea, etc.) call the office at once. Call your doctor if your incision/area has: Increased Pain/ Swelling, Increased Redness, Foul Smelling Discharge Call your doctor if you observe: Fever of 101 or Higher Remove Dressing in (days):: 3 - Okay to remove on October 19, 2017 Additional Instructions: DVT prophylaxis: Continue with aspirin 325 mg twice daily with food and take Nexium for the next 30 days Stool softener: Okay to take [id number] stool softener until first bowel movement, then as needed Continue with Tylenol 1000 mg every 8 hours for pain control, only use oxycodone for breakthrough pain as needed Allergies/Adverse Reactions: Allergies gluten Allergy (Verified 10/14/17 13:21) Other JENNIFER Inhibitors Adverse Reaction (Verified 10/14/17 13:21) Other codeine Adverse Reaction (Verified 10/14/17 13:22) Other Medications to take at Discharge B12/Levomefolate Calcium/B-6 [Folbic Rf Tablet] 1,000 mcg PO DAILY 10/14/17 Cholecalciferol (Vitamin D3) [Vitamin D3] 1,000 unit PO QODAY 10/14/17 Clonazepam [Klonopin] 0.5 mg PO BREAKFAST 10/14/17 Clonazepam [Klonopin] 0.5 mg PO Q6H PRN PRN 10/14/17 Clonazepam [Klonopin] 1 mg PO QHS 10/14/17 Esomeprazole Mag Trihydrate [Nexium] 40 mg PO DAILY 10/14/17 Folic Acid 1,600 mg PO DAILY 10/14/17 Losartan Potassium 25 mg PO DAILY 10/14/17 Metoprolol Succinate 50 mg PO BID 10/14/17 Nortriptyline HCl 125 mg PO QHS 10/14/17 Acetaminophen [Tylenol] 1,000 mg PO Q8 #90 tab 10/16/17 Aspirin 325 mg PO BIDCM #30 tab 10/16/17 Oxycodone [Oxyir] 5 - 10 mg PO Q4H PRN PRN 5 Days #60 tab 10/16/17 The following prescriptions were given: Oxycodone [Oxyir] 5 - 10 mg PO Q4H PRN PRN 5 Days #60 tab PRN Reason: Mod-Severe Pain (-06/02) Acetaminophen [Tylenol] 1,000 mg PO Q8 #90 tab Aspirin 325 mg PO BIDCM #30 tab Primary Care Physician: Patricia Park,Out of [Primary Care Provider] - Please Follow Up With: Xander Tolentino MD When: Scheduled follow-up in 10-12 days for incision check and x-rays
[2017-10-16 09:00] VITALS: BP 104/48; PULSE 77; RESP 18; TEMP 36.5; O2SAT 97
[2017-10-16 09:10] LABS: Hemoglobin 10.2 g/dl (12.0-15.0); Mean Corpuscular Hgb 29.7 pg (27.0-32.0); Mean Corpuscular Volume 87.2 fL (81-99); Mean Platelet Vol. 9.6 fl (6.2-12.0); Platelet Count 296 K/mm3 (150-450); RBC Distribution Width CV 12.8 % (11.6-14.6); RBC Distribution Width SD 39.2 fl (35.1-43.9); Red Blood Count 3.44 M/mm3 (4.2-5.4); White Blood Count 10.8 K/mm3 (4.4-11.0)
[2017-10-16] MEDS: Acetaminophen 500 MG Tablet 1000 MG PO ×2 (09:22→13:50)
--- NOTE | 2017-10-16 09:30 | CASEMGMT ---
PADMINI HELTON discussed discharge plans with patient. Patient wishes to discharge home with home health care and walker and 3 in 1 commode. Patient states she has no preference on HHC or DME company. Referral made to [facility] for PT/OT and aide services and [facility] is able to accept the patient. PADMINI HELTON obtained [place] and [place] [facility] [place]. PADMINI HELTON updated patient and no concerns or questions voiced at this time. PADMINI HELTON will continue to follow this patient and plan for a safe discharge.
[2017-10-16 09:34] LABS: Scan Indicated on CBC? Y/N NO
[2017-10-16 10:38] VITALS: BP 104/48; PULSE 77
[2017-10-16] MEDS: Metoprolol(XL)Succ 50 MG Tablet PO (10:38)
[2017-10-16] MEDS: Pantoprazole Sodium 40 MG Tablet PO (10:38)
[2017-10-16] MEDS: Aspirin 325 MG Tablet PO (10:38)
[2017-10-16] MEDS: Losartan Potassium 25 MG Tablet PO (10:39)
[2017-10-16] MEDS: oxyCODONE 5 MG Tablet PO (12:41)
[2017-10-16 14:05] VITALS: BP 118/69; PULSE 79; RESP 18; TEMP 37; O2SAT 98
[2017-10-16 14:45] VITALS: BP 118/69; PULSE 79; RESP 18; TEMP 37; O2SAT 98
[2017-10-20 16:01] LABS: Nortriptyline Level 117 ng/mL (50-150)
== END 2017-10-16 15:09 | disposition home health service (06) | DRG 470 ==
LOC: ACINP 13:50 → MS3 16:31
PROVIDERS: Admitting Provider Specialist
PROC: 0SR904A Replacement of Right Hip Joint with Ceramic on Polyethylene Synthetic Substitute, Uncemented, Open Approach (ICD-10-PCS; CPT 27284; principal; 2017-10-14 13:05)
DX: S72.031A Displaced midcervical fracture of right femur, initial encounter for closed fracture (principal); F17.210 Nicotine dependence, cigarettes, uncomplicated; M16.11 Unilateral primary osteoarthritis, right hip; W01.0XXA Fall on same level from slipping, tripping and stumbling without subsequent striking against object, initial encounter; Y92.019 Unspecified place in single-family (private) house as the place of occurrence of the external cause; I10 Essential (primary) hypertension; F41.9 Anxiety disorder, unspecified; F32.9 Major depressive disorder, single episode, unspecified; K21.9 Gastro-esophageal reflux disease without esophagitis
CPT/HCPCS: 36415; 73502; 80048; 80335; 85027; 88305; 88311; 97110; 97116; 97162; 97165; 97530; 97535; 99251; J7120; G0463; J2405

== ENCOUNTER → 2019-10-03 | Outpatient (CLI) | payer MEDICARE, SELFPAY ==
--- NOTE | 2019-10-03 12:52 | CT_ITS ---
STUDY: CTA CHEST REASON FOR EXAM: Female, 79 years old. AORTIC ECTASIA RADIATION DOSAGE (If Supplied By Facility): CTDIvol = ( 12.68 ) mGy, DLP = ( 395.88 ) mGycm TECHNIQUE: The examination was performed with the intravenous administration of 100 CC ISOVUE 370. Post-processing of the angiographic images was performed, with multiplanar reformation and 3D reconstruction. Individualized dose optimization techniques were used for this CT. COMPARISON: 01/15/2011 FINDINGS: Normal enhancement of the main pulmonary artery and right and left pulmonary arteries. Normal enhancement of the bilateral peripheral pulmonary arteries. There is no demonstrated pulmonary embolism. Normal thoracic aorta and visualized great vessels. There is no demonstrated aortic dissection. Normal heart and pericardium. Normal mediastinum. Normal hilar regions. Normal visualized trachea and bronchi. The lungs are well expanded. Mild emphysematous changes. Mild bilateral apical scarring. Some dependent bibasilar subsegmental atelectasis. No noncalcified nodule or mass Normal pleura. Normal chest wall structures. Normal osseous structures. Normal visualized upper abdomen. CT/CTA Chest W/WO Contrast IMPRESSION: Normal CTA chest examination, without a demonstrated pulmonary embolism or arterial dissection. Electronically Signed: Isac Chin MD at 7:50 EST Tel , Service support ,
[2019-10-04 07:32] LABS: CREATININE FINGERSTICK 0.64 mg/dL (0.55-1.02); EGFR FINGERSTICK > 60 mL/min (>60)
== END | disposition home or self-care (01) ==
LOC: CT 12:50
DX: I77.819 Aortic ectasia, unspecified site (principal)
CPT/HCPCS: 71275; Q9967

== ENCOUNTER → 2019-10-20 | Outpatient (CLI) | payer MEDICARE, SELFPAY ==
--- NOTE | 2019-10-20 14:51 | CT_ITS ---
STUDY: CT ABDOMEN AND PELVIS WITH CONTRAST REASON FOR EXAM: Female, 79 years old. LUQ PAIN. PRIOR CHOLECYSTECTOMY RADIATION DOSAGE (If Supplied By Facility): CTDIvol = ( 16.74 ) mGy, DLP = ( 972.49 ) mGycm TECHNIQUE: Transaxial images were obtained from the dome of the diaphragm to the symphysis pubis with oral contrast. Oral and amp; IV Readi-CAT and amp; 100mL Isovue-300 was administered. Sagittal and coronal images were reconstructed. Individualized dose optimization techniques were used for this CT. COMPARISON: Prior CT abdomen of 01/08/2011 FINDINGS: The visualized lung bases are unremarkable. The visualized portions of the heart are within normal limits. Normal liver. There are surgical clips in the gallbladder fossa consistent with a prior cholecystectomy. Normal spleen. Normal pancreas. Normal bilateral adrenal glands. Normal right kidney. Normal left kidney. Normal visualized stomach. Normal small intestine. Normal colon. The appendix is visualized and appears normal. There are calcified plaques of the abdominal aorta and common iliac arteries. Normal inferior vena cava. Normal retroperitoneum. Evaluation of pelvic anatomy is limited secondary to a scanning artifact caused by right hip implants. The visualized bladder appears normal. Uterus and adnexal structures appear within normal limits for the patient''s age. Normal abdominal wall. There are diffuse degenerative changes of the visualized thoracolumbar spine. There is a grade 1 anterolisthesis of L4 relative to L5. CT/Abdomen/Pelvis WITH Contrast IMPRESSION: 1. Status post cholecystectomy. 2. Status post total right hip replacement. 3. Degenerative changes of the visualized thoracolumbar spine. Grade 1 anterolisthesis of L4 relative to L5. 4. There is no evidence of free intra-abdominal or intrapelvic air, fluid, or inflammatory process. Electronically Signed: Tima Gomez MD at 16:20 EST , Service support ,
[2019-10-21 07:07] LABS: CREATININE FINGERSTICK 0.57 mg/dL (0.55-1.02)
== END | disposition home or self-care (01) ==
LOC: CT 14:48
DX: R10.12 Left upper quadrant pain (principal)
CPT/HCPCS: 74177; Q9967

== ENCOUNTER 2023-05-13 10:09 | Inpatient (IN) | payer MEDICARE, SELFPAY ==
[2023-05-13] VITALS (9 sets, daily range): BP systolic 135–183; BP diastolic 72–97; PULSE 54–71; RESP 14–18; TEMP 36.3–36.6; O2SAT 92–996; BMI 30.9
--- NOTE | 2023-05-13 10:23 | RAD_ITS ---
STUDY: X-RAY - PELVIS AND LEFT HIP REASON FOR EXAM: Female, 83 years old. Left hip pain following a fall. TECHNIQUE: 3 views of the pelvis and hip. COMPARISON: Comparison is made with prior examination of October 14, 2017. FINDINGS: There is a non-specific bowel gas pattern. Normal visualized soft tissue structures. There is narrowing with cortical sclerosis and osteophyte formation of the sacroiliac joint consistent with degenerative osteoarthritic changes. Normal bilateral superior and inferior pubic rami. There are degenerative changes of the pubic symphysis with articular narrowing and sclerosis. Normal bilateral ischial tuberosities. There is evidence of an impacted left transcervical fracture. RAD/HIP, UNI W/ Pelvis 2-3 Views IMPRESSION: Nondisplaced impacted left transcervical fracture of the proximal left femur. The patient is status post right hip replacement. Electronically Signed: Segun Summers MD at 11:30 EDT ,
--- NOTE | 2023-05-13 10:24 | EKG12_ITS ---
Test Reason : PRE OP Blood Pressure : / mmHG Vent. Rate : 053 BPM Atrial Rate : 053 BPM P-R Int : 204 ms QRS Dur : 126 ms QT Int : 498 ms P-R-T Axes : 035 040 049 degrees QTc Int : 467 ms Sinus bradycardia Right bundle branch block Abnormal ECG Confirmed by BONNIE RICHARD, KVNG ([id number]), editor producer DEAN WINN ([id number]) on 05/19/2023 10:40:57 AM Referred By: Confirmed By:FRANK NICOLE MD
--- NOTE | 2023-05-13 10:25 | EX.ED.GENINJ ---
HPI History of Present Illness Chief Complaint: Fall Detail of Chief Complaint: Fall with left hip injury Informant: patient Narrative Narrative: Patient presents to the emergency department after sustaining a fall this morning. Patient states that she went out to help her dog get up and as she was pulling on the dog she lost her balance and fell injuring her left hip. Patient did not strike her head and did not sustain a loss of consciousness. She denies neck pain. She denies chest pain or abdominal pain. She is not anticoagulated. Patient has had prior bilateral total knee replacements as well as right hip replacement. PFSH PFSH Medical History Arthropathy of hip Knee arthropathy Smoker Home Medications cholecalciferol (vitamin D3) 25 mcg (1,000 unit) capsule (Vitamin D3) 1,000 unit PO QODAY BONES 10/14/17 [History Last Taken Unknown] clonazepam 0.5 mg tablet 0.5 mg PO Q6H PRN PRN Anxiety 10/14/17 [History Last Taken Unknown] clonazepam 0.5 mg tablet (Klonopin) 0.5 mg PO BREAKFAST ANXIETY 10/14/17 [History Last Taken Unknown] clonazepam 1 mg tablet 1 mg PO QHS ANXIETY 10/14/17 [History Last Taken Unknown] cyanocobalamin 2 mg-levomefolate penelope 1.13 mg-pyridoxine 25 mg tablet (Folbic RF) 1,000 mcg PO DAILY HEALTH 10/14/17 [History Last Taken Unknown] esomeprazole magnesium 40 mg capsule,delayed release (Nexium) 40 mg PO DAILY STOMACH 10/14/17 [History Last Taken Unknown] folic acid 800 mcg tablet 1,600 mg PO DAILY HEALTH 10/14/17 [History Last Taken Unknown] losartan 25 mg tablet 25 mg PO DAILY BP 10/14/17 [History Last Taken Unknown] metoprolol succinate 50 mg tablet,extended release 24 hr 50 mg PO BID BP 10/14/17 [History Last Taken Unknown] nortriptyline 50 mg capsule 125 mg PO QHS SLEEP 10/14/17 [History Last Taken Unknown] acetaminophen 500 mg tablet 1,000 mg (2 x 500 mg) PO Q8 #90 tabs 10/16/17 [Rx Last Taken Unknown] aspirin 325 mg tablet 325 mg PO BIDCM #30 tabs 10/16/17 [Rx Last Taken Unknown] oxycodone 5 mg tablet 5 - 10 mg (1 - 2 x 5 mg) PO Q4H PRN PRN Mod-Severe Pain (4-1010) 5 days #60 tabs 10/16/17 [Rx Last Taken Unknown] Allergy/AdvReac Type Severity Reaction Status Date / Time gluten Allergy Other Verified 05/13/23 10:10 JENNIFER Inhibitors AdvReac Other Verified 05/13/23 10:10 codeine AdvReac Other Verified 05/13/23 10:10 Social History Smoking Status: Heavy Smoker (>10/day) ROS ROS ED Review of Systems ROS Unobtainable: other Constitutional Constitutional ED: Reports lethargy; Denies chills, fever(s), sweats or weight loss Eyes Eyes: Denies blurry vision, change in vision or diplopia ENT ENT ED: Denies rhinorrhea or sore throat Cardiovascular Cardiovascular: Denies chest pain, orthopnea or racing heartbeat Respiratory/Chest Respiratory/Chest: Denies cough, dyspnea, dyspnea on exertion, orthopnea or sputum Gastrointestinal Gastrointestinal: Denies abdominal pain, diarrhea, nausea or vomiting Genitourinary Genitourinary ED: Denies dysuria, hematuria or urinary frequency Musculoskeletal Musculoskeletal: Reports other Details: Left hip injury/pain ; Denies arthralgias, back pain, myalgias or neck pain Integumentary Denies abscess, Abrasions or rash Neurologic Neurologic: Denies headache(s) or weakness Psychiatric Psychiatric: Denies anxiety, depression or suicidal thoughts Endocrine Endocrinology: Denies polydipsia, polyphagia or polyuria Hematologic/Lymphatic Hematologic/Lymphatic: Denies easy bleeding, easy bruising or lymphadenopathy Allergic/Immunologic Allergic/Immunologic ED: Denies mouth swelling, tongue swelling or urticaria EXAM Physical Exam Const Vital Signs: 05/13/23 10:10 05/13/23 10:14 05/13/23 10:45 Temperature 97.6 F L Temperature Source Temporal Pulse Rate 54 L Respiratory Rate 14 Respiratory Effort Normal Respiratory Depth Normal Respiratory Pattern Normal Blood Pressure 171/80 H Blood Pressure Mean 110 Pulse Ox 92 Oxygen Delivery Method Room Air Positive well nourished and well developed General Appearance ED: well developed and NAD HEENT Reports TM's clear and moist mucous membranes normocephalic and atraumatic; Negative for trauma or tenderness Tympanic Membrane ED: Yes TM's clear Eyes PERRL and EOMs intact bilaterally General Eye ED: Negative for pale conjunctiva or scleral icterus Neck no lymphadenopathy, supple and no JVD General: Negative for tenderness Chest Wall inspection of chest normal and palpation of chest normal Chest: Negative for tenderness Resp normal respiratory effort and clear to auscultation bilaterally Effort and Inspection: Negative for respiratory distress or pain with movement Auscultation: Negative for rhonchi, wheezes or diminished lung sounds Cardio regular rate, regular rhythm, S1 normal heart sound, S2 normal heart sound and no murmurs Peripheral Pulses: pulses 2+ throughout GI normal to inspection, nondistended, normoactive bowel sounds, soft to palpation, non-tender, non-distended and no masses Back/Spine no CVA tenderness and no thoracic nor lumbar tenderness Extremity Extremity Narrative: Left hip-hip held flexed. Pain to palpation over the left hip. Pain with logrolling. Neurovascular intact distally. No broken skin. General Extremety ED: Negative for edema General Extremity: Negative for edema Neuro oriented x3, CN's II-XII intact bilaterally, no sensory deficits noted and gait normal Sensorium / Orientation: awake, alert, oriented to person, oriented to place and oriented to time Motor Exam: strength 5/5 throughout and strength abnormal Psych mental status grossly normal Skin no rashes or lesions noted and no wounds MDM MDM MDM Narrative Medical decision making narrative: Patient presents after mechanical fall with injury to the left hip. No external evidence of trauma to her head. IV line established. Patient was medicated initially by EMS with Zofran as well as fentanyl. Currently does not anything more for pain. IV line established and CBC with differential obtained showed a white count of 15 with hemoglobin of 12.9 and platelet count of 321. Chemistries unremarkable. Troponin was normal at 4. EKG showed a sinus rhythm with a rate of 53 bpm with right bundle branch block. X-rays of the left hip and pelvis obtained interpreted by myself as subcapital hip fracture relatively nondisplaced. Patient also with evidence of prior hip replacement on the right. Case will be discussed with orthopedic surgeon on-call as well as hospitalist evaluate for admission. Lab Data Attestation: I reviewed the patient's lab results. Labs: Laboratory Results - last 24 hr 05/13/23 10:35 WBC 15.0 H RBC 4.26 Hgb 12.9 Hct 37.7 MCV 88.5 MCH 30.3 MCHC 34.2 RDW Std Deviation 39.0 RDW Coeff of Malena 12.1 Plt Count 321 MPV 9.5 Immature Gran % (Auto) 0.700 Neut % (Auto) 80.4 H Lymph % (Auto) 11.5 L [place] % (Auto) 4.6 Eos % (Auto) 2.5 Baso % (Auto) 0.3 Absolute Neuts (auto) 12.1 H Absolute Lymphs (auto) 1.72 Nucleated RBC % 0 Sodium 138 Potassium 3.6 Chloride 104 Carbon Dioxide 32.0 Anion Gap 2 L BUN 15 Creatinine 0.82 Estim Creat Clear Calc 52.32 Est GFR (MDRD) Af Amer 87 Est GFR (MDRD) Non-Af 72 BUN/Creatinine Ratio 18.4 Glucose 117 H Calcium 8.3 L Troponin I High Sens 4 Radiography Diagnostic Testing: Clinical Impression(s) from Imaging Studies Hip/Pelvis X-Ray 05/13/23 10:23 IMPRESSION: Nondisplaced impacted left transcervical fracture of the proximal left femur. The patient is status post right hip replacement. Electronically Signed: Segun Summers MD at 11:30 EDT , Chest X-Ray 05/13/23 10:50 IMPRESSION: No acute abnormality is seen. Electronically Signed: Segun Summers MD at 11:30 EDT , 2 view x-ray left hip and pelvis obtained interpreted by myself is left subcapital hip fracture EKG Initial EKG: Attestation: I personally reviewed and interpreted this EKG as follows: Comments: Sinus bradycardia with a rate of 53 bpm with right bundle branch block Discharge Plan Dx/Rx/DC Orders Clinical Impression: History of hypertension, Fall, Closed fracture of left hip Disposition Disposition: Acute Care Hospital [facility] Discharge Date/Time: 05/13/23 12:35
--- NOTE | 2023-05-13 10:27 | NURSING ---
NO OLD EKG
[2023-05-13 10:42] LABS: Absolute Lymphocyte Count 1.72 X10^3/uL (0.83-4.51); Absolute Neutrophil Count 12.1 X10^3/uL (2.0-7.7); Basophil# 0.05 X10^3/uL; Basophil% 0.3 % (0-1); Eosinophil# 0.37 X10^3/uL; Eosinophils% 2.5 % (0-5); Hematocrit 37.7 % (37-47); Hemoglobin 12.9 g/dL (12.0-15.0); Lymphocyte # 1.72 X10^3/ul (0.83-4.51); Lymphocyte % 11.5 % (19-41); Mean Corp Hgb Conc 34.2 g/dL (32-36); Mean Corpuscular Hgb 30.3 pg (27.0-32.0); Mean Corpuscular Volume 88.5 fL (81-99); Mean Platelet Vol. 9.5 fl (6.2-12.0); Monocyte# 0.69 X10^3/uL; Monocyte% 4.6 % (0-10); NRBC Flagged by Analyzer 0 % (0-5); Neutrophil # 12.06 X10^3/uL (2.7-7.7); Neutrophil % 80.4 % (47-70); Platelet Count 321 K/mm3 (150-450); RBC Distribution Width CV 12.1 % (11.6-14.6); Red Blood Count 4.26 M/mm3 (4.2-5.4)
--- NOTE | 2023-05-13 10:50 | RAD_ITS ---
STUDY: X-RAY CHEST REASON FOR EXAM: Female, 83 years old. Fall TECHNIQUE: Single AP portable view of the chest. COMPARISON: Comparison is made with prior study dated July 30, 2015. FINDINGS: EKG electrodes are seen. The lungs are clear and expanded. There is no demonstrated pleural abnormality. Normal size heart. Normal mediastinum and robert. Normal visualized pulmonary arteries. There is atherosclerotic calcification of the aortic arch with tortuosity. There are diffuse degenerative changes of the visualized thoracic spine. Normal visualized ribs, clavicles, and shoulders. There is no demonstrated abnormality of the visualized soft tissue structures of the upper abdomen. RAD/Chest 1 View (Portable) IMPRESSION: No acute abnormality is seen. Electronically Signed: Segun Summers MD at 11:30 EDT ,
[2023-05-13 11:06] LABS: Anion Gap 2 (5-15); BUN 15 mg/dL (7-18); BUN/Creat Ratio 18.4 RATIO (10-20); Calcium,Total 8.3 mg/dL (8.5-10.1); Chloride 104 mmol/L (98-107); Creatinine, Serum 0.82 mg/dL (0.55-1.02); EST Glomerular Filtration Rate 72 mL/min (>60); Est Glom Filt Rate - Afr Amer 87 mL/min (>60); Estimated Creatinine Clearance 52.32 ml/min; Glucose 117 mg/dL (74-106); Potassium 3.6 mmol/L (3.5-5.1); Sodium Level 138 mmol/L (136-145); Troponin-I HS 4 pg/mL (3.0-54.0)
--- NOTE | 2023-05-13 11:30 | PCM.HP.STD ---
HPI - General General Date of Admission: 05/13/23 Date of Service: 05/13/23 Chief Complaint: mechanical fall HPI Narrative EVELYN BYRNE, is a 83 F with a PMH as outlined who presents via the ED On 05/13/2023 with a complaint of mechanical fall. She took her dog which has hip dysplasia out. The dog was unable to get up, and so she tried to lift the dog up. She ended up losing her balance and fell. She landed on her left hip. She denied hitting her head and didnt lose consciousness. Review of systems is otherwise negative. Vitals at sharmila e of review were BP of 171/80, HR of 54, RR of 14 nad she was saturating at 92% on room air. CBC showed hb of 12.9, wbc of 15 and platelets of 321. Chemistry was essentially unremarkable and initial troponin was 4. EKG showed sinus bradycardia. Hip and pelvic x-ray showed nondisplaced impacted left transcervical fracture of the proximal left femur. Chest x-ray showed no acute cardiopulmonary pathology. She has been admitted to be managed for left hip fracture due to mechanical fall. FOR[facility]LY [facility], [facility] Medical History Arthropathy of hip Knee arthropathy Smoker Home Medications cholecalciferol (vitamin D3) 25 mcg (1,000 unit) capsule (Vitamin D3) 1,000 unit PO QODAY BONES 10/14/17 [History Last Taken Unknown] clonazepam 0.5 mg tablet 0.5 mg PO Q6H PRN PRN Anxiety 10/14/17 [History Last Taken Unknown] clonazepam 0.5 mg tablet (Klonopin) 0.5 mg PO BREAKFAST ANXIETY 10/14/17 [History Last Taken Unknown] clonazepam 1 mg tablet 1 mg PO QHS ANXIETY 10/14/17 [History Last Taken Unknown] cyanocobalamin 2 mg-levomefolate penelope 1.13 mg-pyridoxine 25 mg tablet (Folbic RF) 1,000 mcg PO DAILY HEALTH 10/14/17 [History Last Taken Unknown] esomeprazole magnesium 40 mg capsule,delayed release (Nexium) 40 mg PO DAILY STOMACH 10/14/17 [History Last Taken Unknown] folic acid 800 mcg tablet 1,600 mg PO DAILY HEALTH 10/14/17 [History Last Taken Unknown] losartan 25 mg tablet 25 mg PO DAILY BP 10/14/17 [History Last Taken Unknown] metoprolol succinate 50 mg tablet,extended release 24 hr 50 mg PO BID BP 10/14/17 [History Last Taken Unknown] nortriptyline 50 mg capsule 125 mg PO QHS SLEEP 10/14/17 [History Last Taken Unknown] acetaminophen 500 mg tablet 1,000 mg (2 x 500 mg) PO Q8 #90 tabs 10/16/17 [Rx Last Taken Unknown] aspirin 325 mg tablet 325 mg PO BIDCM #30 tabs 10/16/17 [Rx Last Taken Unknown] oxycodone 5 mg tablet 5 - 10 mg (1 - 2 x 5 mg) PO Q4H PRN PRN Mod-Severe Pain (4-10/10) 5 days #60 tabs 10/16/17 [Rx Last Taken Unknown] Allergy/AdvReac Type Severity Reaction Status Date / Time gluten Allergy Other Verified 05/13/23 10:10 JENNIFER Inhibitors AdvReac Other Verified 05/13/23 10:10 codeine AdvReac Other Verified 05/13/23 10:10 Family History no significant family his Social History Smoking Status: Heavy Smoker (>10/day) ROS Review of Systems ROS Unobtainable: Denies due to encephalopathy Constitutional Constitutional: Denies anorexia, chills, fatigue, fever(s), malaise or weakness Eyes Eyes: Denies change in vision ENT HEENT: Denies dysphagia, headache(s), sore throat or throat swelling Cardiovascular Cardiovascular: Denies chest pain, edema or palpitations Respiratory/Chest Respiratory/Chest: Denies cough, shortness of breath at rest or shortness of breath with exertion Gastrointestinal Gastrointestinal: Denies abdominal pain, constipation, nausea or vomiting Genitourinary Genitourinary: Denies dysuria Integumentary Integumentary: Reports dry skin Psychiatric Psychiatric: Reports anxiety and depression Vital Signs Vital Signs Vital Signs: 05/13/23 10:10 05/13/23 10:14 05/13/23 10:45 Temperature 97.6 F L Temperature Source Temporal Pulse Rate 54 L Respiratory Rate 14 Respiratory Effort Normal Respiratory Depth Normal Respiratory Pattern Normal Blood Pressure 171/80 H Blood Pressure Mean 110 Pulse Ox 92 Oxygen Delivery Method Room Air Weight Weight: 197 lb 5.019 oz Body Mass Index (BMI) 30.9 Physical Exam Const oriented x3 and no apparent distress General Appearance: cooperative and well developed HEENT normocephalic, head/scalp atraumatic, moist oral mucous membranes and oropharynx normal Eyes PERRL and EOMs intact bilaterally Neck no lymphadenopathy, supple and no JVD Lymph Lymphatic: no lymphadenopathy noted Resp normal respiratory effort, normal air movement and clear to auscultation bilaterally Cardio regular rate, regular rhythm, S2 normal heart sound and no murmurs GI normal to inspection, nondistended, normoactive bowel sounds, soft to palpation, non-tender and non-distended Extremity normal capillary refill and no clubbing, cyanosis or edema Extremity Narrative: LLE shortened and externally rotated Skin General Skin Exam: no breakdown and turgor normal Neuro CN's II-XII intact bilaterally and no focal motor deficits Psych thought process normal, cooperative and affect normal Appearance: appropriate Results Lab / Micro Data 05/13/23 10:35 05/13/23 10:35 Labs: Laboratory Results - last 24 hr 05/13/23 10:35: WBC 15.0 H, RBC 4.26, Hgb 12.9, Hct 37.7, MCV 88.5, MCH 30.3, MCHC 34.2, RDW Std Deviation 39.0, RDW Coeff of Malena 12.1, Plt Count 321, MPV 9.5, Immature Gran % (Auto) 0.700, Neut % (Auto) 80.4 H, Lymph % (Auto) 11.5 L, [place] % (Auto) 4.6, Eos % (Auto) 2.5, Baso % (Auto) 0.3, Absolute Neuts (auto) 12.1 H, Absolute Lymphs (auto) 1.72, Nucleated RBC % 0, Sodium 138, Potassium 3.6, Chloride 104, Carbon Dioxide 32.0, Anion Gap 2 L, BUN 15, Creatinine 0.82, Estim Creat Clear Calc 52.32, Est GFR (MDRD) Af Amer 87, Est GFR (MDRD) Non-Af 72, BUN/Creatinine Ratio 18.4, Glucose 117 H, Calcium 8.3 L, Troponin I High Sens 4 Assessment & Plan Assessment/Plan (1) Closed fracture of left hip: (2) Fall: PLAN: Plan #LLE transcervical femoral neck fracture due to mechanical fall admit to med surg consult orthopedic surgery PT/OT consult fall precautions keep NPO for now PO tylenol and IV morphine prn for pain #Hypertension Controlled. On metoprolol. States her blood pressure has been difficult to control nowadays. Blood pressure is up in the 180s systolic. On metoprol and losartan. IV hydralazine as needed. #GERD: On PPI #Depression and anxiety: On nortriptyline DVT prophylaxis: lovenox Code status; full code Charges/Coding Visit Charges Inpatient E&M: 28016 Init Hosp L3
[2023-05-13] MEDS: 0.9% Normal Saline (1000mL) 1,000 ML 150 ML IV ×3 (11:42→21:36)
[2023-05-13] MEDS: fentaNYL 100 MCG/2 ML Ampul 25 MCG IV (11:42)
[2023-05-13] MEDS: Acetaminophen 325 MG Tablet 650 MG PO ×2 (14:23→20:42)
[2023-05-13] MEDS: hydrALAZINE 20 MG/ML Vial 10 MG IV ×2 (14:23→20:42)
[2023-05-13] MEDS: 0.9% Saline Lock 10 ML Syringe IV ×3 (14:24→22:46)
[2023-05-13] MEDS: SimETHICONE 80 MG Chewable Tablet PO ×2 (18:30→20:41)
[2023-05-13] MEDS: clonazePAM 1 MG Tablet PO (21:35)
[2023-05-13] MEDS: Nortriptyline 25 MG Capsule 100 MG PO (21:35)
[2023-05-13] MEDS: Metoprolol(XL)Succ 50 MG Tablet PO (21:35)
[2023-05-13] MEDS: Pantoprazole Sodium 40 MG Tablet PO (21:44)
[2023-05-13] MEDS: Bisacodyl 10 MG Suppository RC (23:54)
[2023-05-14] VITALS (21 sets, daily range): BP systolic 104–167; BP diastolic 61–85; PULSE 64–78; RESP 8–18; TEMP 36–36.9; O2SAT 34–100; BMI 30.9
--- NOTE | 2023-05-14 00:32 | NURSING ---
At the start of the shift this nurse was notified patient called out and wanted to be taken back to the ER. Upon entry patient had a male and female visitor at her bedside. Patient and male visitor glared at this nurse. Patient notified nurse that she is not good, not good at all and reported that she wants this nurse to wheel her down to the ER to see a physician. She reported that her pain is a 9/10 between her headache, left hip ache, but reports that her abdomen is the most uncomfortable at this time. She lifted her gown and had this nurse look at her abdomen and press on the left side, which was soft. She reports that her abodmen is becoming distended and that it is asymmetrical. She states that she needs to have a rectal exam. This nurse notified patient that simethicone is ordered and that this nurse can give her one for gas pressure. Patient requested same but states that if this doesn't do anything what are we going to do. 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 This nurse offered to give her a stool softener and she reports, that will take way too long. This nurse inquired what she feels would be most beneficial and offered to obtain an order for a suppository. Patient notified this nurse that she will take the Simethicone and Tylenol and then wait an hour or so and see. Patient reports that she does not do well with narcotics and does not want any on the floor but reports that she was given Fentanyl in the ambulance and she believes that caused her to have constipation and gas pressure. After an hour, patient called out and requested to have a suppository. This nurse notified the physician and obtained an order for the same. Medication was given with the assistance of another staff member, per patient's request and physician's order. Upon inserting suppository a moderate amount of hard stool was present.
[2023-05-14] MEDS: Acetaminophen 325 MG Tablet 650 MG PO (06:08)
[2023-05-14 06:27] LABS: Absolute Lymphocyte Count 1.23 X10^3/uL (0.83-4.51); Absolute Neutrophil Count 15.4 X10^3/uL (2.0-7.7); Basophil# 0.05 X10^3/uL; Basophil% 0.3 % (0-1); Eosinophil# 0.01 X10^3/uL; Eosinophils% 0.1 % (0-5); Hematocrit 39.1 % (37-47); Hemoglobin 13.2 g/dL (12.0-15.0); Lymphocyte # 1.23 X10^3/ul (0.83-4.51); Mean Corp Hgb Conc 33.8 g/dL (32-36); Mean Corpuscular Hgb 30.4 pg (27.0-32.0); Mean Corpuscular Volume 90.1 fL (81-99); Monocyte# 0.82 X10^3/uL; Monocyte% 4.7 % (0-10); NRBC Flagged by Analyzer 0 % (0-5); Neutrophil # 15.36 X10^3/uL (2.7-7.7); Neutrophil % 87.2 % (47-70); Platelet Count 344 K/mm3 (150-450); RBC Distribution Width CV 12.4 % (11.6-14.6); Red Blood Count 4.34 M/mm3 (4.2-5.4); White Blood Count 17.6 K/mm3 (4.4-11.0)
[2023-05-14 07:10] LABS: Anion Gap 5 (5-15); BUN 13 mg/dL (7-18); BUN/Creat Ratio 16.2 RATIO (10-20); Calcium,Total 8.2 mg/dL (8.5-10.1); Chloride 103 mmol/L (98-107); EST Glomerular Filtration Rate 73 mL/min (>60); Est Glom Filt Rate - Afr Amer 88 mL/min (>60); Estimated Creatinine Clearance 53.63 ml/min; Glucose 121 mg/dL (74-106); Potassium 3.3 mmol/L (3.5-5.1); Sodium Level 136 mmol/L (136-145)
[2023-05-14] MEDS: clonazePAM 0.5 MG Tablet PO (08:39)
[2023-05-14] MEDS: 0.9% Normal Saline (1000mL) 1,000 ML 100 ML IV ×2 (08:39→20:57)
[2023-05-14] MEDS: Metoprolol(XL)Succ 50 MG Tablet PO ×2 (08:40→20:43)
--- NOTE | 2023-05-14 09:48 | CASEMGMT ---
PADMINI HELTON Face to Face with patient for initial transition planning/care coordination assessment. RN DANIE introduced self and role at [facility]. Patient lying in bed, alert and oriented. Patient willing to participate in assessment and is able to answer all questions appropriately. Care providers, pharmacy, and demographics verified. Patient wishes to discharge home. She states after her last hip she had HHC and then OP therapy. Pt sister and brother in law are staying with pt a short time. Patient states she has no further needs or concerns at this time. CM to follow for discharge planning needs that may arise. PCP:Timbo Specialists:Brooke Araujo, psych at [facility] Preferred Pharmacy:[facility] Insurance:[employer] [facility] Prescription Benefit: yes LNOK:Claude Moran, brother in law Living Arrangements:Pt lives alone in a two story home with 5 steps to enter in the front and 2 steps to enter in the garage with a grab bar. Pt reports she is I in ADL's prior to surgery and her family can assist her post surgery. Pt denies concerns at home. Transportation: Pt drives self and denies concerns with transportation. Pt friend Lady will be able to transport pt post surgery. DME:Pt has a walking stick, grab bars over the toilet, grab bars in bathroom and biology faculty member. HHC:Pt has had [facility] in the past. SNF:Denies hx of. Disposition Plan:TBD pending surgery and progress with therapy. Pt would like to return home.
--- NOTE | 2023-05-14 09:48 | PN_ITS ---
Subjective Subjective Patient seen and examined. She complained of pain at site of broken hip. She says she doesnt want to take narcotics as she feels very horrible when she takes them. Review of systems is otherwise negative. Potassium is 3.3 today. Objective Data Objective Data Vital Signs: Vital Signs Temp Pulse Resp BP Pulse Ox O2 Del Method O2 Flow Rate 98.2 F 72 12 148/72 H 95 Room Air 1 05/14/23 08:05 05/14/23 08:40 05/14/23 08:05 05/14/23 08:05 05/14/23 08:05 05/14/23 08:05 05/13/23 13:15 Oxygen Flow Rate (L/min) 1 Oxygen Delivery Method Room Air Weight: 197 lb 5.019 oz Body Mass Index (BMI) 30.9 Intake & Output: Intake and Output for Last 24 Hours 05/12/23 05/13/23 05/14/23 23:59 23:59 23:59 Intake Total 1485.0 / 1485.0 1000 / 1000 Output Total 750 / 750 Balance 735.0 / 735.0 1000 / 1000 Lab / Micro Data 05/14/23 05:35 05/14/23 05:35 Labs: Laboratory Results - last 24 hr 05/13/23 10:35: WBC 15.0 H, RBC 4.26, Hgb 12.9, Hct 37.7, MCV 88.5, MCH 30.3, MCHC 34.2, RDW Std Deviation 39.0, RDW Coeff of Malena 12.1, Plt Count 321, MPV 9.5, Immature Gran % (Auto) 0.700, Neut % (Auto) 80.4 H, Lymph % (Auto) 11.5 L, [place] % (Auto) 4.6, Eos % (Auto) 2.5, Baso % (Auto) 0.3, Absolute Neuts (auto) 12.1 H, Absolute Lymphs (auto) 1.72, Nucleated RBC % 0, Sodium 138, Potassium 3.6, Chloride 104, Carbon Dioxide 32.0, Anion Gap 2 L, BUN 15, Creatinine 0.82, Estim Creat Clear Calc 52.32, Est GFR (MDRD) Af Amer 87, Est GFR (MDRD) Non-Af 72, BUN/Creatinine Ratio 18.4, Glucose 117 H, Calcium 8.3 L, Troponin I High Sens 4 05/14/23 05:35: WBC 17.6 H, RBC 4.34, Hgb 13.2, Hct 39.1, MCV 90.1, MCH 30.4, MCHC 33.8, RDW Std Deviation 41.0, RDW Coeff of Malena 12.4, Plt Count 344, MPV 10.0, Immature Gran % (Auto) 0.700, Neut % (Auto) 87.2 H, Lymph % (Auto) 7.0 L, [place] % (Auto) 4.7, Eos % (Auto) 0.1, Baso % (Auto) 0.3, Absolute Neuts (auto) 15.4 H, Absolute Lymphs (auto) 1.23, Nucleated RBC % 0, Sodium 136, Potassium 3.3 L, Chloride 103, Carbon Dioxide 28.0, Anion Gap 5, BUN 13, Creatinine 0.80, Estim Creat Clear Calc 53.63, Est GFR (MDRD) Af Amer 88, Est GFR (MDRD) Non-Af 73, BUN/Creatinine Ratio 16.2, Glucose 121 H, Calcium 8.2 L, Blood Type O POSITIVE, Antibody Screen NEGATIVE Radiography Diagnostic Testing: Radiology Impression Hip/Pelvis X-Ray 05/13/23 10:23 IMPRESSION: Nondisplaced impacted left transcervical fracture of the proximal left femur. The patient is status post right hip replacement. Electronically Signed: Segun Summers MD at 11:30 EDT , Chest X-Ray 05/13/23 10:50 IMPRESSION: No acute abnormality is seen. Electronically Signed: Segun Summers MD at 11:30 EDT , Physical Exam Const alert, oriented x3 and no apparent distress General Appearance: cooperative and well developed HEENT normocephalic, head/scalp atraumatic, moist oral mucous membranes and oropharynx normal Eyes PERRL and EOMs intact bilaterally Neck no lymphadenopathy, supple and no JVD Lymph Lymphatic: no lymphadenopathy noted Resp normal respiratory effort, normal air movement and clear to auscultation bilaterally Cardio regular rate, regular rhythm, S1 normal heart sound, S2 normal heart sound and no murmurs GI normal to inspection, nondistended, normoactive bowel sounds, soft to palpation, non-tender and non-distended Extremity normal capillary refill and no clubbing, cyanosis or edema Extremity Narrative: LLE shortened and externally rotated Skin General Skin Exam: no breakdown and turgor normal Neuro CN's II-XII intact bilaterally and no focal motor deficits Psych thought process normal, cooperative and affect normal Appearance: appropriate Assessment & Plan Assessment/Plan (1) Closed fracture of left hip: (2) Fall: PLAN: Plan #LLE transcervical femoral neck fracture due to mechanical fall * orthopedic surgery on board * on PO tylenol, IV morphne for pain. Still complaining of pain. Says she does not like taking narcotics. We will add on IV Toradol as needed. * PT/OT on board * fall precautions * NPO for surgery today * #Hypertension * BP still elevated today. * States her blood pressure has been difficult to control nowadays. * On metoprol and losartan. IV hydralazine as needed. * #HYpokalemia: will replaced with IV KCl and trend potassium levels #GERD: On PPI #Depression and anxiety: On nortriptyline DVT prophylaxis: lovenox Code status; full code Charges/Coding Visit Charges Inpatient E&M: 32688 Subs Hosp L2
[2023-05-14] MEDS: Potassium Chloride 10mEq/100mL 10 MEQ/100 ML IV.SOLN. 100 MEQ IV BOLUS ×3 (10:38→12:53)
--- NOTE | 2023-05-14 13:01 | CON.PCM.OR_ITS ---
HPI Consult Data Date of Consult: 05/14/23 HPI Narrative Reason for Consultation: Left hip pain HPI Narrative: EVELYN BYRNE, is a 83 F who presents with severe left hip pain. Patient notes she was out walking her dog when she had a fall. She denies losing consciousness or hitting her head. She reports pain and inability to bear weight. She reported to the emergency department found to have a femoral neck fracture. Patient reports pain with motion in the left thigh. Better with immobilization. Patient has significant nausea with pain medication she is limiting how much pain medicine she is taking. Patient did have right total replacement in 2018. Patient reports her activity is remained similar she continues to live at home independently. She does not use a walker or cane regularly. She continues to smoke. She denies any significant medical changes outside of what is mentioned in the HPI and once in the hospital record. She does report some new onset irritation of Betadine in her eyes due to eye procedures. PFSH Medical History Arthropathy of hip Knee arthropathy Smoker Home Medications cholecalciferol (vitamin D3) 25 mcg (1,000 unit) capsule (Vitamin D3) 1,000 unit PO QHS BONES 10/14/17 [History Last Taken 05/12/23] clonazepam 0.5 mg tablet 0.5 mg PO Q6H PRN PRN Anxiety 10/14/17 [History Last Taken Unknown] clonazepam 0.5 mg tablet (Klonopin) 0.5 mg PO BREAKFAST ANXIETY 10/14/17 [History Last Taken 05/12/23] clonazepam 1 mg tablet 1 mg PO QHS ANXIETY 10/14/17 [History Last Taken 05/12/23] cyanocobalamin 2 mg-levomefolate penelope 1.13 mg-pyridoxine 25 mg tablet (Folbic RF) 1,000 mcg PO QWEEK HEALTH 10/14/17 [History Last Taken 05/09/23] esomeprazole magnesium 40 mg capsule,delayed release (Nexium) 40 mg PO QHS STOMACH 10/14/17 [History Last Taken Unknown] folic acid 800 mcg tablet 1,600 mg PO DAILY HEALTH 10/14/17 [History Last Taken Unknown] losartan 25 mg tablet 25 mg PO DAILY BP 10/14/17 [History Last Taken Unknown] metoprolol succinate 50 mg tablet,extended release 24 hr 100 mg PO BID BP 10/14/17 [History Last Taken 05/13/23] nortriptyline 50 mg capsule 100 mg PO QHS SLEEP 10/14/17 [History Last Taken 05/12/23] oxycodone 5 mg tablet 5 - 10 mg (1 - 2 x 5 mg) PO Q4H PRN PRN Mod-Severe Pain (4-10/10) 5 days #60 tabs 10/16/17 [Rx Last Taken Unknown] acetaminophen 500 mg tablet 1,000 mg PO Q8 PRN fever or pain 05/13/23 [History Last Taken Unknown] aspirin 325 mg tablet 81 mg PO QHS PREVENT COLON POLYPS 05/13/23 [History Last Taken 05/12/23] Allergy/AdvReac Type Severity Reaction Status Date / Time gluten Allergy Other Verified 05/13/23 10:10 JENNIFER Inhibitors AdvReac Other Verified 05/13/23 10:10 codeine AdvReac Other Verified 05/13/23 10:10 Family History no significant family his no significant family history Social History Smoking Status: Heavy Smoker (>10/day) ROS Constitutional Constitutional: Reports systems reviewed and no addt'l complaints, except as documented Eyes Eyes: Reports systems reviewed and no addt'l complaints, except as documented ENT HEENT: Reports systems reviewed and no addt'l complaints, except as documented Cardiovascular Cardiovascular: Reports systems reviewed and no addt'l complaints, except as documented Respiratory/Chest Respiratory/Chest: Reports systems reviewed and no addt'l complaints, except as documented Gastrointestinal Gastrointestinal: Reports systems reviewed and no addt'l complaints, except as documented Genitourinary Genitourinary: Reports systems reviewed and no addt'l complaints, except as documented Musculoskeletal Musculoskeletal: Reports systems reviewed and no addt'l complaints, except as documented Integumentary Integumentary: Reports systems reviewed and no addt'l complaints, except as documented Neurologic Neurologic: Reports systems reviewed and no addt'l complaints, except as documented Psychiatric Psychiatric: Reports systems reviewed and no addt'l complaints, except as documented Endocrine Endocrinology: Reports systems reviewed and no addt'l complaints, except as documented Hematologic/Lymphatic Hematologic/Lymphatic: Reports systems reviewed and no addt'l complaints, except as documented Allergic/Immunologic Allergic/Immunologic: Reports systems reviewed and no addt'l complaints, except as documented Vital Signs Vital Signs Vital Signs: 05/13/23 13:15 05/13/23 14:23 05/13/23 16:30 Temperature 97.4 F L 97.6 F L Temperature Source Oral Oral Pulse Rate 60 60 71 Pulse Strength Respiratory Rate 18 18 Respiratory Effort Respiratory Depth Respiratory Pattern Blood Pressure 183/97 H 183/97 H 165/72 H Blood Pressure [2nd BP] Blood Pressure Mean 125 103 Blood Pressure Mean [2nd BP] Blood Pressure Source Monitor Monitor Blood Pressure Source [2nd BP] Blood Pressure Position Semi-Fowlers Semi-Fowlers Blood Pressure Position [2nd BP] Blood Pressure Location Left Arm Left Arm Blood Pressure Location [2nd BP] Pulse Ox 97 96 Oxygen Delivery Method Nasal Cannula Room Air Oxygen Flow Rate (L/min) 1 05/13/23 16:30 05/13/23 16:54 05/13/23 20:26 Temperature 98 F Temperature Source Oral Pulse Rate 61 Pulse Strength Respiratory Rate 16 Respiratory Effort Normal Non-Labored Respiratory Depth Normal Respiratory Pattern Normal Blood Pressure 164/84 H Blood Pressure [2nd BP] Blood Pressure Mean 110 Blood Pressure Mean [2nd BP] Blood Pressure Source Monitor Blood Pressure Source [2nd BP] Blood Pressure Position Semi-Fowlers Blood Pressure Position [2nd BP] Blood Pressure Location Right Arm Blood Pressure Location [2nd BP] Pulse Ox 94 Oxygen Delivery Method Room Air Room Air Room Air Oxygen Flow Rate (L/min) 05/13/23 20:42 05/13/23 21:35 05/14/23 03:00 Temperature 98.4 F Temperature Source Oral Pulse Rate 61 69 71 Pulse Strength Respiratory Rate 18 Respiratory Effort Respiratory Depth Respiratory Pattern Blood Pressure 164/84 H 135/74 H 121/61 H Blood Pressure [2nd BP] Blood Pressure Mean 81 Blood Pressure Mean [2nd BP] Blood Pressure Source Monitor Blood Pressure Source [2nd BP] Blood Pressure Position Semi-Fowlers Blood Pressure Position [2nd BP] Blood Pressure Location Right Arm Blood Pressure Location [2nd BP] Pulse Ox 92 Oxygen Delivery Method Room Air Oxygen Flow Rate (L/min) 05/14/23 06:00 05/14/23 08:05 05/14/23 08:40 Temperature 98.2 F Temperature Source Oral Pulse Rate 72 72 Pulse Strength Respiratory Rate 12 Respiratory Effort Normal Non-Labored Respiratory Depth Normal Respiratory Pattern Normal Blood Pressure 148/72 H Blood Pressure [2nd BP] Blood Pressure Mean 97 Blood Pressure Mean [2nd BP] Blood Pressure Source Monitor Blood Pressure Source [2nd BP] Blood Pressure Position Supine Blood Pressure Position [2nd BP] Blood Pressure Location Right Arm Blood Pressure Location [2nd BP] Pulse Ox 95 Oxygen Delivery Method Room Air Room Air Oxygen Flow Rate (L/min) 05/14/23 11:23 05/14/23 11:35 05/14/23 09:54 Temperature 98.5 F Temperature Source Oral Pulse Rate 71 Pulse Strength Normal (2+) Respiratory Rate 12 Respiratory Effort Respiratory Depth Respiratory Pattern Blood Pressure 167/85 H Blood Pressure [2nd BP] 160/80 H Blood Pressure Mean 112 Blood Pressure Mean [2nd BP] 106 Blood Pressure Source Monitor Blood Pressure Source [2nd BP] Manual Blood Pressure Position Supine Blood Pressure Position [2nd BP] Supine Blood Pressure Location Right Arm Blood Pressure Location [2nd BP] Right Arm Pulse Ox 98 Oxygen Delivery Method Room Air Oxygen Flow Rate (L/min) 05/14/23 09:30 Temperature Temperature Source Pulse Rate Pulse Strength Respiratory Rate Respiratory Effort Normal Non-Labored Respiratory Depth Normal Respiratory Pattern Normal Blood Pressure Blood Pressure [2nd BP] Blood Pressure Mean Blood Pressure Mean [2nd BP] Blood Pressure Source Blood Pressure Source [2nd BP] Blood Pressure Position Blood Pressure Position [2nd BP] Blood Pressure Location Blood Pressure Location [2nd BP] Pulse Ox Oxygen Delivery Method Room Air Oxygen Flow Rate (L/min) Weight Weight: 197 lb 5.019 oz Body Mass Index (BMI) 30.9 Physical Exam Const alert and oriented x3 General Appearance: cooperative HEENT normocephalic and head/scalp atraumatic Eyes PERRL Neck no JVD Resp normal respiratory effort Cardio Cardio Narrative: Regular pulse rate GI non-distended Extremity Extremity Narrative: Left lower extremity: Skin clean, dry, and intact. Limb is shortened and externally rotated Motor is intact dorsiflexion, EHL and plantar flexion. Sensation is intact to light touch saphenous, kenzie,l superficial peroneal, deep peroneal and tibial distributions. Calves are soft and supple. Skin Skin Narrative: Skin is intact over the left lower extremity Neuro CN's II-XII intact bilaterally Medical Records Data Attestation: I reviewed the patient's medical records Lab / Micro Data Attestation: I reviewed the patient's lab results. 05/14/23 05:35 05/14/23 05:35 Labs: Laboratory Results - last 24 hr 05/14/23 05:35: WBC 17.6 H, RBC 4.34, Hgb 13.2, Hct 39.1, MCV 90.1, MCH 30.4, MCHC 33.8, RDW Std Deviation 41.0, RDW Coeff of Malena 12.4, Plt Count 344, MPV 10.0, Immature Gran % (Auto) 0.700, Neut % (Auto) 87.2 H, Lymph % (Auto) 7.0 L, Davison % (Auto) 4.7, Eos % (Auto) 0.1, Baso % (Auto) 0.3, Absolute Neuts (auto) 15.4 H, Absolute Lymphs (auto) 1.23, Nucleated RBC % 0, Sodium 136, Potassium 3.3 L, Chloride 103, Carbon Dioxide 28.0, Anion Gap 5, BUN 13, Creatinine 0.80, Estim Creat Clear Calc 53.63, Est GFR (MDRD) Af Amer 88, Est GFR (MDRD) Non-Af 73, BUN/Creatinine Ratio 16.2, Glucose 121 H, Calcium 8.2 L, Blood Type O POSITIVE, Antibody Screen NEGATIVE Left hip x-rays were reviewed. Patient did have a displaced subcapital femoral neck fracture with associated joint space narrowing and marginal osteophyte formation consistent with pre-existing osteoarthritis and acute fracture. Assessment & Plan Assessment/Plan (1) GERD (gastroesophageal reflux disease): PLAN: Per primary service (2) Depression: PLAN: Per primary service (3) Anxiety: PLAN: per primary service (4) Hypertension: PLAN: Per primary service (5) History of hypertension: PLAN: Per primary service (6) Fall: PLAN: Per primary service (7) Closed fracture of left hip: PLAN: Patient has a displaced subcapital femoral neck fracture. She has previous right total replacement. Natural history of the disease process and treatment options were discussed with patient including hemiarthroplasty, percutaneous pinning and total hip replacement. Based on patient's excess with the right hip replacement. Her current activity level and overall health we have recommended and patient would like to proceed with left total replacement. Risk and benefits of the procedure were discussed the patient including but not limited to blood loss, DVTs, and PEs, nervous damage, infection, risk of anesthesia including loss of life. Patient demonstrates an understanding of these. We also discussed intraoperative fractures, postoperative fracture, leg length discrepancies and instability. Patient demonstrates understanding and wishes to proceed. At this time, patient has antibiotics on-call the operating room. She is been appropriately cleared and consented for surgery. We will proceed with surgery this afternoon. [facility] Office:
--- NOTE | 2023-05-14 13:10 | NURSING ---
Pt refuses nose swab with betadine d/t skin irritation. Dr Tolentino present and aware.
[2023-05-14] MEDS: Cefazolin 2 GM in 0.9% Normal Saline (100mL Bag) 100 ML IV (13:19)
--- NOTE | 2023-05-14 13:25 | HIP_PTH ---
PATIENT: EVELYN BYRNE LOC: MS3 U#:[id number] AGE/SX: 83/F [place] [facility] [place]13[place]: Dr. Mary Jo Marcano MD : 1940 BED: 1 DIS: 05/16/2023 SPEC #: [id number] RECD: 05/14/23 16:21 STATUS: JULIA CEDILLORobin #: [id number] TRISTON: 05/14/23 13:[address]: Xander Tolentino DEPT: SURGICAL PATHOLOGY RECD BY: Shana Boone ENTERED: 05/15/23 07:11 SP TYPE: TOTAL HIP OTHR DR: Dr. Mary Jo Marcano MD Tissues: Hip, NOS Procedures: Decalcification bone/plaque Surgery Specimen Level IV HEADER OPERATION: Left hip total vs milli PRE-OP DIAGNOSIS: Closed fracture of left hip TISSUE SUBMITTED: Bone and tissue left hip MICROSCOPIC DIAGNOSIS Bone and tissue of left hip, fracture: Organizing fracture callous. AM:christine 05/20/2023 MICROSCOPIC DESCRIPTION Slides are reviewed. GROSS DESCRIPTION Received is one container labeled with the patient's name and designated bone and tissue left hip. The specimen consists of a jones femoral head measuring 4.5 x 4.5 x 3.0 cm. The articular surface is smooth. Resection margin is irregular and hemorrhagic. Also present on the top of the femoral head is a piece of soft tissue measuring 3.5 x 1.5 x 0.6 cm. Also present in the specimen container are multiple detached pieces of bone and bone reamings measuring in aggregate 7.0 x 7.0 x 2.0 cm. [employer] sections are submitted in three cassettes as follows: 1 - soft tissue, 2 - detached pieces of bone, 3 - femoral head. Cassettes 2 & 3 are submitted after decalcification. / VIRAJ:christine 05/15/2023 TC:5 CPT: 97952, [id number]
[2023-05-14 13:28] LABS: Bedside Glucose 88 mg/dL (74-106)
--- NOTE | 2023-05-14 13:30 | RAD_ITS ---
INDICATION: FX EXAMINATION/TECHNIQUE: X-RAY - 4 fluoroscopic images of the left hip were obtained intraoperatively on a C-arm. The fluoroscopy time was 7.3 seconds. COMPARISON: 05/13/2023. FINDINGS: Images were obtained intraoperatively for left hip arthroplasty. The examination was not performed for diagnostic purposes. RAD/Hip 1 view with Pelvis IMPRESSION: Intraoperative exam as described above. Electronically Signed: Delroy Doherty MD at 8:51 EDT ,
[2023-05-14] MEDS: TXA 1000mg in NS100 100ml (IVPB at Incision) 660 MG IV (13:50)
[2023-05-14] MEDS: TXA 1000mg in NS100 100ml (IVPB at Closure) 660 MG IV (14:33)
--- NOTE | 2023-05-14 14:33 | CASEMGMT ---
Discharge Planning A list of home healthcare providers including quality and resource use data and consistent with the patient?s preferred geographic region, medical needs, and insurance network was created in [employer] Guide. This list was provided to the RN DANIE. Kimi Thrasher, Discharge Planning Asst.
--- NOTE | 2023-05-14 14:36 | PCM.OPRPT ---
Report of Operation Pre-Operative Diagnosis: Left hip primary osteoarthritis, acute displaced femoral neck fracture subcapital Post-Operative Diagnosis: Left hip primary osteoarthritis, acute displaced femoral neck subcapital fracture Surgery/Procedure Performed:: Left direct anterior hip replacement Description of Surgical Findings:: Stable hip with equal leg lengths Surgeon: Xander Tolentino vp analytics: Cristopher Sharma Type of Anesthesia: General Special Medications: 2 g Ancef, 1 g TXA at incision, 1 g TXA closure, 10 mg Decadron, joint cocktail (5 mg Duramorph, 30 mL of 0.5% Ropivicaine, 1000 units of epinephrine, 30 mg of Toradol) Specimen's removed: Bony cuts Estimated Blood Loss (mL): 200 Fluids Replaced: 850 Description of Procedure: Components used: 1. Insignia Niraj femoral stem size 4 high offset 2. Niraj trident 2 acetabular shell size 52 mm 3. Niraj X3 polyethylene E 4. Starford Biolox delta 36mm, -2.5mm femoral head Brief history operative indications: 83 yo F who sustained a mechanical fall resulting in a left displaced femoral neck fracture. X-rays were consistent with acute displaced femoral neck fracture with pre-existing osteoarthritis including joint space narrowing, osteophyte formation and subchondral cysts. Total hip replacement was discussed with the patient with risks and benefits including but not limited to blood loss, DVTs, PEs, neurovascular damage, dislocation, general risks of anesthesia including loss of life. Patient demonstrated an understanding medical clearance is obtained the patient was consented for surgery. Procedure: On the date of procedure the patient's L hip was marked in the preoperative area. Patient was then taken back to the operating room where anesthesia assumed control of the C-spine and airway and administered anesthetic. Patient was transferred to the operating table and placed in the supine position. The hips were placed at the break of the bed and a sacral bump was placed. L The lower extremity was then prepped out in a sterile fashion using chlorhexidine while the surgeon scrubbed. The PA was vital in the positioning of the patient. Upon reentering the room the left lower extremity was draped in the standard orthopedic fashion and the incision was marked. A timeout was called and everyone agreed upon the side, the site, the procedure be performed, antibody given, and patient's identity. At this time incision was made through skin, subcutaneous tissue, and fat down to fascia. The fascia was then incised and the TFL was retracted laterally. A retractor was placed on the lateral border of the femoral neck. Attention was directed to the inferior portion of the approach and all crossing vessels were identified and appropriately coagulated. A retractor was then placed on the medial portion of the femoral neck. The anterior capsule was then cleared of all soft tissue and then H shaped capsulotomy was made. The retractors were then placed inside the capsule. The femoral neck was identified and a cleanup cut was made. At this time a power corkscrew was used to remove the femoral head. Attention was then turned toward the acetabulum where the soft tissues were appropriately retracted and the acetabulum was sequentially reamed to 52 mm. A 52 mm cup was then selected and impacted into place. Acetabular liner was impacted into place and locking mechanism was verified. The position of the acetabular cup was then verified under live fluoroscopy. Attention was then turned to the femur. Soft tissue releases on the medial and lateral femoral neck were appropriately done, the leg was externally rotated and lateralized. A Myers retractor was placed medially and proximally to the greater trochanter this allowed appropriate visualization and exposure of the femoral canal. Rongeour was then used to remove excess lateral bone. A canal finder and entry broach were used to open the proximal canal. Once we verified we were down the femoral canal we subsequently broached up to a size 4 femur. The appropriate neck was placed in the previously selected head was trialed with a -2.5 mm neck. Traction was pulled and the hip was reduced with internal rotation. Once it was appropriately reduced and stability was checked. There was minimal shuck, equal leg lengths and appropriate stability with hyperextension and external rotation as well as with 90? flexion and internal rotation. Fluoroscopy was then also used to verify the position of the components and leg lengths using the contralateral side for comparison. The trial components were then dislocated the proximal femur was again exposed and the components were removed from the wound. The final components were verified and opened. The wound was copiously irrigated out with normal saline. The acetabulum was checked for any residual debris. The final components were placed and impacted. Traction and internal rotation were again used to reduce the hip. After adequate reduction the hip remained stable with appropriate leg lengths. The final components were once again checked with live fluoroscopy and were found to be satisfactory. The wound was then copiously irrigated with normal saline once more, and hemostasis was obtained. Closure was then done using #1 Vicryl runner to close the fascia. A 2-0 vicryl interuppted sutures were used to close the subcutaneous skin. Nylon sutures were used for final skin closure. A Silverlon dressing was placed. Patient was awakened by anesthesia and transferred to the [facility]. Patient was then transferred to the PACU for recovery. During the course of the procedure the physician correction warden (PE) played a vital role. Their intimate knowledge of my steps in the procedure aided in safe and expedient completion of the procedure. The PE played a vital rolls in positioning particularly in obtaining the appropriate positioning of the sacral bump. The PE was also vital in the retraction of soft tissues during the exposure and especially the femoral work as this is a vital part of the procedure to prevent complications and fractures. The PE was also vital and protecting soft tissues during times of bony cuts and reaming. He also played a vital role in closure with my direct supervision. The PE was also important during reduction and dislocation of the joint and trials intraoperatively. Postoperative plan: Patient will get 24 hours postop antibiotics. Patient will get in-house physical therapy and will be weight-bear as tolerated. Patient will follow up in office in 2 weeks for a wound check and x-rays. Aspirin 81 mg twice daily. Complications No intraoperative complications Admit VTE Documentation VTE Present on Admission: No VTE Mechan Device Prophylaxis: SCD's and Thigh High ENMANUEL Hose VTE Pharm Prophylaxis ordered?: Yes
[2023-05-14] MEDS: JPS (Morphine 10mg/ml) OPERA.SITE (14:42)
[2023-05-14] MEDS: Lactated Ringers 1,000 ML 999 ML IV (15:20)
--- NOTE | 2023-05-14 15:45 | RAD_ITS ---
STUDY: X-RAY - PELVIS AND LEFT HIP REASON FOR EXAM: Female, 83 years old. Post Op -- AP both hips on single luzmaria/lateral of op hip PACU TECHNIQUE: 2 views of the pelvis and hip. COMPARISON: None. FINDINGS: There is a non-specific bowel gas pattern. Normal visualized soft tissue structures. Normal bilateral iliac wings, sacroiliac joints and visualized sacrum. Normal bilateral superior and inferior pubic rami. Normal pubic symphysis. Normal bilateral ischial tuberosities. Satisfactory appearance of left hip arthroplasty. RAD/Hip Min 2 Views (Portable) IMPRESSION: Satisfactory appearance of left hip arthroplasty. Electronically Signed: Erick Sapp MD at 17:07 EDT ,
[2023-05-14] MEDS: Lactated Ringers 1,000 ML 125 ML IV (16:46)
[2023-05-14 17:02] LABS: Bedside Glucose 111 mg/dL (74-106)
--- NOTE | 2023-05-14 17:11 | SUR.PHASEI ---
DR GRAHAM CAME TO SEE PATIENT AFTER NARCAN WAS GIVEN, PATIENT AWAKE AND TALKING. DR GRAHAM TOLD RN TO KEEP PATIENT FOR AN HOUR POST NARCAN TO ENSURE SHE IS OKAY.
[2023-05-14] MEDS: Cefazolin 1 GM/50 ML BAG IV (20:39)
[2023-05-14] MEDS: Aspirin 81 MG TAB.CHEW PO (20:41)
[2023-05-14] MEDS: Acetaminophen 500 MG Tablet 1000 MG PO (20:42)
[2023-05-14] MEDS: Nortriptyline 25 MG Capsule 100 MG PO (20:43)
[2023-05-14] MEDS: clonazePAM 1 MG Tablet PO (20:52)
[2023-05-15] VITALS (11 sets, daily range): BP systolic 105–143; BP diastolic 57–70; PULSE 62–75; RESP 16–18; TEMP 36.6–37.2; O2SAT 89–96
[2023-05-15] MEDS: 0.9% Normal Saline (1000mL) 1,000 ML 100 ML IV (05:27)
[2023-05-15] MEDS: Cefazolin 1 GM/50 ML BAG IV (05:27)
[2023-05-15] MEDS: Acetaminophen 500 MG Tablet 1000 MG PO ×3 (05:28→22:18)
[2023-05-15 07:08] LABS: Absolute Lymphocyte Count 1.39 X10^3/uL (0.83-4.51); Absolute Neutrophil Count 13.2 X10^3/uL (2.0-7.7); Basophil# 0.05 X10^3/uL; Basophil% 0.3 % (0-1); Eosinophil# 0.06 X10^3/uL; Eosinophils% 0.4 % (0-5); Hematocrit 31.9 % (37-47); Hemoglobin 10.4 g/dL (12.0-15.0); Lymphocyte # 1.39 X10^3/ul (0.83-4.51); Lymphocyte % 8.7 % (19-41); Mean Corp Hgb Conc 32.6 g/dL (32-36); Mean Corpuscular Hgb 30.3 pg (27.0-32.0); Mean Platelet Vol. 10.1 fl (6.2-12.0); Monocyte# 1.23 X10^3/uL; Monocyte% 7.7 % (0-10); NRBC Flagged by Analyzer 0 % (0-5); Neutrophil # 13.18 X10^3/uL (2.7-7.7); Neutrophil % 82.3 % (47-70); Platelet Count 259 K/mm3 (150-450); RBC Distribution Width CV 13.1 % (11.6-14.6); RBC Distribution Width SD 44.2 fl (35.1-43.9); Red Blood Count 3.43 M/mm3 (4.2-5.4)
[2023-05-15 07:39] LABS: Anion Gap 3 (5-15); BUN 19 mg/dL (7-18); BUN/Creat Ratio 18.6 RATIO (10-20); Calcium,Total 7.3 mg/dL (8.5-10.1); Chloride 106 mmol/L (98-107); Creatinine, Serum 1.02 mg/dL (0.55-1.02); EST Glomerular Filtration Rate 55 mL/min (>60); Est Glom Filt Rate - Afr Amer 67 mL/min (>60); Estimated Creatinine Clearance 42.06 ml/min; Glucose 111 mg/dL (74-106); Potassium 4.2 mmol/L (3.5-5.1); Sodium Level 135 mmol/L (136-145)
[2023-05-15] MEDS: Folic Acid 1 MG Tablet 2 MG PO (08:31)
[2023-05-15] MEDS: Metoprolol(XL)Succ 50 MG Tablet PO ×2 (08:31→22:19)
[2023-05-15] MEDS: clonazePAM 0.5 MG Tablet PO (08:31)
[2023-05-15] MEDS: Aspirin 81 MG TAB.CHEW PO ×2 (11:23→22:18)
--- NOTE | 2023-05-15 11:35 | CASEMGMT ---
PADMINI CM into pt room, pt sitting up in chair with nurse in room. Pt feels she did well with therapy. She wants to go home with [facility] for a couple of weeks then go outpt as she has done in the past with the other hip fx. Provided pt with a HH list provided by dc furniture removalist's assistant. Pt chooses [facility]. Pt states her sister and brother in law are going to stay with her for recovery. DC furniture removalist's assistant aware and will make referral.
--- NOTE | 2023-05-15 12:01 | CASEMGMT ---
Discharge Planning Referral made to [facility] via phone and [facility]. Kimi Thrasher, Discharge Planning Asst.
--- NOTE | 2023-05-15 12:25 | PN_ITS ---
Subjective Subjective Patient seen and examined. SHe had no active complaints. Pain was well controlled. She is POD 1 for left hip replacement. Review of systems is otherwise negative. Objective Data Objective Data Vital Signs: Vital Signs Temp Pulse Resp BP Pulse Ox O2 Del Method O2 Flow Rate 97.8 F 68 18 115/60 94 Nasal Cannula 2 05/15/23 08:19 05/15/23 11:29 05/15/23 08:19 05/15/23 11:29 05/15/23 08:19 05/15/23 08:19 05/15/23 08:19 Oxygen Flow Rate (L/min) 2 Oxygen Delivery Method Nasal Cannula Weight: 197 lb 5.019 oz Body Mass Index (BMI) 30.9 Intake & Output: Intake and Output for Last 24 Hours 05/13/23 05/14/23 05/15/23 23:59 23:59 23:59 Intake Total 1485.0 / 1485.0 3607.92 / 3707.92 1352.08 / 1352.08 Output Total 750 / 750 1850 / 2075 375 / 375 Balance 735.0 / 735.0 1757.92 / 1632.92 977.08 / 977.08 Lab / Micro Data 05/15/23 06:20 05/15/23 06:20 Labs: Laboratory Results - last 24 hr 05/14/23 13:09: POC Glucose 88 05/14/23 16:44: POC Glucose 111 H 05/15/23 06:20: WBC 16.0 H, RBC 3.43 L, Hgb 10.4 L, Hct 31.9 L, MCV 93.0, MCH 30.3, MCHC 32.6, RDW Std Deviation 44.2 H, RDW Coeff of Malena 13.1, Plt Count 259, MPV 10.1, Immature Gran % (Auto) 0.600, Neut % (Auto) 82.3 H, Lymph % (Auto) 8.7 L, [place] % (Auto) 7.7, Eos % (Auto) 0.4, Baso % (Auto) 0.3, Absolute Neuts (auto) 13.2 H, Absolute Lymphs (auto) 1.39, Nucleated RBC % 0, Sodium 135 L, Potassium 4.2, Chloride 106, Carbon Dioxide 26.0, Anion Gap 3 L, BUN 19 H, Creatinine 1.02, Estim Creat Clear Calc 42.06, Est GFR (MDRD) Af Amer 67, Est GFR (MDRD) Non-Af 55 L, BUN/Creatinine Ratio 18.6, Glucose 111 H, Calcium 7.3 L Radiography Diagnostic Testing: Radiology Impression Hip/Pelvis X-Ray 05/14/23 13:30 IMPRESSION: Intraoperative exam as described above. Electronically Signed: Delroy Doherty MD at 8:51 EDT , Hip X-Ray 05/14/23 15:45 IMPRESSION: Satisfactory appearance of left hip arthroplasty. Electronically Signed: Erick Sapp MD at 17:07 EDT , Physical Exam Const alert, oriented x3 and no apparent distress General Appearance: cooperative and well developed HEENT normocephalic, head/scalp atraumatic, moist oral mucous membranes and oropharynx normal Eyes PERRL and EOMs intact bilaterally Neck no lymphadenopathy, supple and no JVD Lymph Lymphatic: no lymphadenopathy noted Resp normal respiratory effort, normal air movement and clear to auscultation bilaterally Cardio regular rate, regular rhythm, S1 normal heart sound, S2 normal heart sound and no murmurs GI normal to inspection, nondistended, normoactive bowel sounds, soft to palpation, non-tender and non-distended Extremity normal capillary refill and no clubbing, cyanosis or edema Extremity Narrative: intact dressing over surgical site on left hip Skin General Skin Exam: no breakdown and turgor normal Neuro CN's II-XII intact bilaterally and no focal motor deficits Psych thought process normal, cooperative and affect normal Appearance: appropriate Assessment & Plan Assessment/Plan (1) Closed fracture of left hip: (2) Fall: PLAN: Plan #LLE transcervical femoral neck fracture due to mechanical fall * orthopedic surgery on board * s/p left anterior hip replacement * TOday is POD 1 * on PO tylenol, IV morphine as well as IV toradol prn for pain * PT/OT on board * fall precautions * #Hypertension * BP has improved. * States her blood pressure has been difficult to control nowadays. * On metoprol and losartan. IV hydralazine as needed. * #Hypokalemia: will replaced with IV KCl and trend potassium levels #GERD: On PPI #Depression and anxiety: On nortriptyline DVT prophylaxis: lovenox Code status; full code Disposition; anticipate dc home with home health over the next 24-48 hours Charges/Coding Visit Charges Inpatient E&M: 87701 Subs Hosp L2
--- NOTE | 2023-05-15 12:45 | CASEMGMT ---
Discharge Planning Patient has been accepted by [facility]. SOC Thursday. RN CM updated. Kimi Thrasher, Discharge Planning Asst.
--- NOTE | 2023-05-15 13:55 | PN.ORTHO_ITS ---
Subjective Subjective Patient is doing well. No acute events overnight. Patient reports left hip pain is significant improved. She reports little bit of hospital feeling otherwise feels she is doing well. She has been up with physical therapy with her walker. She is also been going to the bathroom around her room. Objective Data Objective Data Vital Signs: Vital Signs Temp Pulse Resp BP Pulse Ox O2 Del Method O2 Flow Rate 97.8 F 73 18 131/67 H 92 Room Air 2 05/15/23 13:35 05/15/23 13:35 05/15/23 13:35 05/15/23 13:35 05/15/23 13:35 05/15/23 13:35 05/15/23 08:19 Oxygen Flow Rate (L/min) 2 Oxygen Delivery Method Room Air Weight: 197 lb 5.019 oz Body Mass Index (BMI) 30.9 Intake & Output: Intake and Output for Last 24 Hours 05/13/23 05/14/23 05/15/23 23:59 23:59 23:59 Intake Total 1485.0 / 1485.0 3607.92 / 3707.92 1352.08 / 1352.08 Output Total 750 / 750 1850 / 2075 525 / 525 Balance 735.0 / 735.0 1757.92 / 1632.92 827.08 / 827.08 Lab / Micro Data Attestation: I reviewed the patient's lab results. 05/15/23 06:20 05/15/23 06:20 Labs: Laboratory Results - last 24 hr 05/14/23 16:44: POC Glucose 111 H 05/15/23 06:20: WBC 16.0 H, RBC 3.43 L, Hgb 10.4 L, Hct 31.9 L, MCV 93.0, MCH 30.3, MCHC 32.6, RDW Std Deviation 44.2 H, RDW Coeff of Malena 13.1, Plt Count 259, MPV 10.1, Immature Gran % (Auto) 0.600, Neut % (Auto) 82.3 H, Lymph % (Auto) 8.7 L, [place] % (Auto) 7.7, Eos % (Auto) 0.4, Baso % (Auto) 0.3, Absolute Neuts (auto) 13.2 H, Absolute Lymphs (auto) 1.39, Nucleated RBC % 0, Sodium 135 L, Potassium 4.2, Chloride 106, Carbon Dioxide 26.0, Anion Gap 3 L, BUN 19 H, Creatinine 1.02, Estim Creat Clear Calc 42.06, Est GFR (MDRD) Af Amer 67, Est GFR (MDRD) Non-Af 55 L, BUN/Creatinine Ratio 18.6, Glucose 111 H, Calcium 7.3 L Radiography Diagnostic Testing: Radiology Impression Hip/Pelvis X-Ray 05/14/23 13:30 IMPRESSION: Intraoperative exam as described above. Electronically Signed: Delroy Doherty MD at 8:51 EDT , Hip X-Ray 05/14/23 15:45 IMPRESSION: Satisfactory appearance of left hip arthroplasty. Electronically Signed: Erick Sapp MD at 17:07 EDT , Physical Exam Const alert, oriented x3 and no apparent distress Extremity Extremity Narrative: Left lower extremity: Dressing is clean dry and intact Sensations intact to light touch saphenous, sural, superficial peroneal, deep peroneal, and tibial distributions Motors intact EHL, DF, PF calves are soft and supple Assessment & Plan Assessment/Plan (1) Closed fracture of left hip: PLAN: Postop day 1 left direct anterior total replacement 1. DVT prophylaxis: Aspirin 81 mg p.o. twice daily for 4 weeks postoperatively. High risk DVT screening was negative preoperatively. 2. Pain control: Per primary service currently on Tylenol and meloxicam prescribed. Patient wishes to avoid narcotics if she has excessive nausea in the past. 3. Physical therapy: Weightbearing as tolerated, anterior precautions. Activity as tolerated 4. Reactive leukocytosis: Related to trauma and intraoperative steroids 5. Hemoglobin: 10.4?changes are expected postoperative changes from intraoperative blood loss 6. Disposition: A. Dressing: Dressing can be discontinued on postop day 5. If incision remains clean dry and intact patient should continue to shower if continued drainage please contact the office B. DVT prophylaxis: As above aspirin for 4 weeks C. Physical therapy: Patient should be arranged for outpatient or at home physical therapy upon discharge. D. Pain control: Orthopedics will assume patient's pain control upon discharge should be discharged with home scripts by primary service E. Destination: Patient will likely be able to be discharged home with home health care or outpatient physical therapy. Any further questions please call orthopedics [facility] Office: Any discrepancies have been result of using [employer] voice recognition.
--- NOTE | 2023-05-15 15:19 | DS.PCM_ITS ---
Providers Date of Admission: 05/13/23 Date of Discharge: 05/15/23 Primary Care Physician: CÉSAR LOVE Consultations 05/13/23 12:59 Consult: Orthopedics Routine Consulting Provider: Xander Tolentino Reason for Consult: left hip fracture due to mechanical fall EMERGENT Consult: No MD Notified: Yes Date Notified: 05/13/23 Time Notified: 11:40 Method of Notification: Text Reason For Visit: LEFT HIP FRACTURE DUE TO MECHANICAL FALL Diagnosis Discharge Diagnosis (1) Closed fracture of left hip: Status: Acute Code(s): S72.002A - Fracture of unspecified part of neck of left femur, initial encounter for closed fracture Plan #LLE transcervical femoral neck fracture due to mechanical fall * orthopedic surgery on board * s/p left anterior hip replacement * TOday is POD 1 * on PO tylenol, IV morphine as well as IV toradol prn for pain * PT/OT on board * fall precautions * #Hypertension * BP has improved. * States her blood pressure has been difficult to control nowadays. * On metoprol and losartan. IV hydralazine as needed. * #Hypokalemia: will replaced with IV KCl and trend potassium levels #GERD: On PPI #Depression and anxiety: On nortriptyline DVT prophylaxis: lovenox Code status; full code Disposition; anticipate dc home with home health over the next 24-48 hours Medications at Discharge Home Medications cholecalciferol (vitamin D3) 25 mcg (1,000 unit) capsule (Vitamin D3) 1,000 unit PO QHS BONES 10/14/17 clonazepam 0.5 mg tablet 0.5 mg PO Q6H PRN PRN Anxiety 10/14/17 clonazepam 0.5 mg tablet (Klonopin) 0.5 mg PO BREAKFAST ANXIETY 10/14/17 clonazepam 1 mg tablet 1 mg PO QHS ANXIETY 10/14/17 cyanocobalamin 2 mg-levomefolate penelope 1.13 mg-pyridoxine 25 mg tablet (Folbic RF) 1,000 mcg PO QWEEK HEALTH 10/14/17 esomeprazole magnesium 40 mg capsule,delayed release (Nexium) 40 mg PO QHS STOMACH 10/14/17 folic acid 800 mcg tablet 1,600 mg PO DAILY HEALTH 10/14/17 losartan 25 mg tablet 25 mg PO DAILY BP 10/14/17 metoprolol succinate 50 mg tablet,extended release 24 hr 100 mg PO BID BP 10/14/17 nortriptyline 50 mg capsule 100 mg PO QHS SLEEP 10/14/17 oxycodone 5 mg tablet 5 - 10 mg (1 - 2 x 5 mg) PO Q4H PRN PRN Mod-Severe Pain (4-10/10) 5 days #60 tabs 10/16/17 acetaminophen 500 mg tablet 1,000 mg PO Q8 PRN fever or pain 05/13/23 aspirin 81 mg capsule 81 mg PO BID #56 caps 05/15/23 Hospital Course Operations - (left anterior hip replacement) Summary of Care Provided Minutes Spent on Discharge: 55 Hospital Course: EVELYN BYRNE, is a 83 F with a PMH as outlined who presents via the ED On 05/13/2023 with a complaint of mechanical fall. She took her dog which has hip dysplasia out. The dog was unable to get up, and so she tried to lift the dog up. She ended up losing her balance and fell. She landed on her left hip. She denied hitting her head and didnt lose consciousness. Review of systems is otherwise negative. Vitals at sharmila e of review were BP of 171/80, HR of 54, RR of 14 nad she was saturating at 92% on room air. CBC showed hb of 12.9, wbc of 15 and platelets of 321. Chemistry was essentially unremarkable and initial troponin was 4. EKG showed sinus bradycardia. Hip and pelvic x-ray showed nondisplaced impacted left transcervical fracture of the proximal left femur. Chest x-ray showed no acute cardiopulmonary pathology. She was admitted to be managed for left hip fracture due to mechanical fall. Orthopedics was consulted. Patient had left anterior hip replacement on 05/14/2023. She tolerated the surgery well. Postop course was uncomplicated and she felt well. She was placed on p.o. aspirin 81 mg twice daily for 4 weeks for DVT prophylaxis. Patient was discharged home on 05/15/2023. Patient refused a prescription for opiates as she said she does not like them and did not want taking them. She was discharged home. Tylenol for pain. She is follow-up with her PCP and follow-up with orthopedics on outpatient basis Within 2 weeks. Patient was seen and examined prior to discharge. She had no active complaints. She had an uneventful night and review of systems otherwise negative. Labs and vitals reviewed. Home medication reviewed and reconciled. Physical Exam Const alert, oriented x3 and no apparent distress General Appearance: cooperative and well developed HEENT normocephalic, head/scalp atraumatic, moist oral mucous membranes and oropharynx normal Eyes PERRL and EOMs intact bilaterally Neck no lymphadenopathy, supple and no JVD Lymph Lymphatic: no lymphadenopathy noted Resp normal respiratory effort, normal air movement and clear to auscultation bilaterally Cardio regular rate, regular rhythm, S1 normal heart sound, S2 normal heart sound and no murmurs GI normal to inspection, nondistended, normoactive bowel sounds, soft to palpation, non-tender and non-distended Extremity normal capillary refill and no clubbing, cyanosis or edema Extremity Narrative: intact dressing over surgical site on left hip Skin General Skin Exam: no breakdown and turgor normal Neuro CN's II-XII intact bilaterally and no focal motor deficits Psych thought process normal, cooperative and affect normal Appearance: appropriate Weight / BMI Weight Weight: 197 lb 5.019 oz Body Mass Index (BMI) 30.9 ABG / Lab / Microbiology Data 05/15/23 06:20 05/15/23 06:20 Laboratory: Laboratory Results - last 24 hr 05/14/23 16:44: POC Glucose 111 H 05/15/23 06:20: WBC 16.0 H, RBC 3.43 L, Hgb 10.4 L, Hct 31.9 L, MCV 93.0, MCH 30.3, MCHC 32.6, RDW Std Deviation 44.2 H, RDW Coeff of Malena 13.1, Plt Count 259, MPV 10.1, Immature Gran % (Auto) 0.600, Neut % (Auto) 82.3 H, Lymph % (Auto) 8.7 L, [place] % (Auto) 7.7, Eos % (Auto) 0.4, Baso % (Auto) 0.3, Absolute Neuts (auto) 13.2 H, Absolute Lymphs (auto) 1.39, Nucleated RBC % 0, Sodium 135 L, Potassium 4.2, Chloride 106, Carbon Dioxide 26.0, Anion Gap 3 L, BUN 19 H, Creatinine 1.02, Estim Creat Clear Calc 42.06, Est GFR (MDRD) Af Amer 67, Est GFR (MDRD) Non-Af 55 L, BUN/Creatinine Ratio 18.6, Glucose 111 H, Calcium 7.3 L Radiography Diagnostic Testing: Radiology Impression Hip/Pelvis X-Ray 05/14/23 13:30 IMPRESSION: Intraoperative exam as described above. Electronically Signed: Delroy Doherty MD at 8:51 EDT , Hip X-Ray 05/14/23 15:45 IMPRESSION: Satisfactory appearance of left hip arthroplasty. Electronically Signed: Erick Sapp MD at 17:07 EDT , D/C Instructions Discharge Diet: Low fat / Low cholesterol Weight Bearing Status: Weight bearing as tolerated Call your doctor if you observe: Fever of 101 or Higher, Shortness of breath, Swelling in the ankles and Uncontrolled pain Meaningful Use Info Meaningful Use Diagnoses (Choose all that apply): None applicable Discharge Plan Admission Admit Date/Time: 05/13/23 11:38 Primary Reason for Your Visit: left hip fracture s/p left hip replacement Attending Provider: Mary Jo Marcano Primary Care Provider: CÉSAR LOVE Consulting Providers: Xander Tolentino Instructions Patient Instructions: Hip Fracture Common Questions, Hip Fracture Surgery ... Discharge Orders/Prescriptions Prescriptions: New aspirin 81 mg capsule 81 mg PO BID Qty: 56 0RF Continued nortriptyline 50 MG capsule 100 mg PO QHS Patient Comments: HAS TO BE TEVA BRAND metoprolol succinate 50 MG tablet extended release 24 hr 100 mg PO BID losartan 25 MG tablet 25 mg PO DAILY folic acid 0.8 MG tablet 1,600 mg PO DAILY cholecalciferol (vitamin D3) [Vitamin D3] 1,000 UNIT capsule 1,000 unit PO QHS Folbic RF 1 EACH tablet 1,000 mcg PO QWEEK esomeprazole magnesium [Nexium] 40 MG capsule 40 mg PO QHS clonazepam [Klonopin] 0.5 MG tablet 0.5 mg PO BREAKFAST clonazepam 0.5 MG tablet 0.5 mg PO Q6H PRN PRN (Reason: Anxiety) clonazepam 1 MG tablet 1 mg PO QHS oxycodone 5 MG tablet 5 - 10 mg PO Q4H PRN PRN (Reason: Mod-Severe Pain (-06/02)) 5 Days Qty: 60 0RF acetaminophen 500 MG tablet 1,000 mg PO Q8 PRN (Reason: fever or pain) Discontinued aspirin 325 MG tablet 81 mg PO QHS Referrals / Follow Up: CÉSAR LOVE [Other] - Within 1 Week CÉSAR LOVE [Other] aXnder Tolentino MD [Med Staff - Active Staff] - Within 2 Weeks Disposition Disposition (needs filled in before D/C Order can be placed): Home Health Service Charges/Coding Visit Charges Inpatient E&M: 91153 Disch Hosp >30min
--- NOTE | 2023-05-15 15:41 | PHA.DC_ITS ---
Pharmacy [facility] Pharmacy Service has performed discharge medication reconciliation and counseling for this patient. The patient's discharge medication list was reviewed for discrepancies and discrepancies were resolved. The patient was counseled on the following discharge medications and changes in medications for homegoing were reviewed. The Reason for Use, instructions for use, and potential side effects were reviewed for all new medications. The patient's questions regarding all of their medications were answered. 1. Aspirin 81 mg PO BID The patient was able to verbally demonstrate an understanding of their discharge medications. Medications at Discharge Home Medications cholecalciferol (vitamin D3) 25 mcg (1,000 unit) capsule (Vitamin D3) 1,000 unit PO QHS BONES 10/14/17 clonazepam 0.5 mg tablet 0.5 mg PO Q6H PRN PRN Anxiety 10/14/17 clonazepam 0.5 mg tablet (Klonopin) 0.5 mg PO BREAKFAST ANXIETY 10/14/17 clonazepam 1 mg tablet 1 mg PO QHS ANXIETY 10/14/17 cyanocobalamin 2 mg-levomefolate penelope 1.13 mg-pyridoxine 25 mg tablet (Folbic RF) 1,000 mcg PO QWEEK HEALTH 10/14/17 esomeprazole magnesium 40 mg capsule,delayed release (Nexium) 40 mg PO QHS STOMACH 10/14/17 folic acid 800 mcg tablet 1,600 mg PO DAILY HEALTH 10/14/17 losartan 25 mg tablet 25 mg PO DAILY BP 10/14/17 metoprolol succinate 50 mg tablet,extended release 24 hr 100 mg PO BID BP 10/14/17 nortriptyline 50 mg capsule 100 mg PO QHS SLEEP 10/14/17 oxycodone 5 mg tablet 5 - 10 mg (1 - 2 x 5 mg) PO Q4H PRN PRN Mod-Severe Pain (4-10/10) 5 days #60 tabs 10/16/17 acetaminophen 500 mg tablet 1,000 mg PO Q8 PRN fever or pain 05/13/23 aspirin 81 mg capsule 81 mg PO BID #56 caps 05/15/23
[2023-05-15] MEDS: 0.9% Saline Lock 10 ML Syringe IV (22:15)
[2023-05-15] MEDS: Nortriptyline 25 MG Capsule 100 MG PO (22:18)
[2023-05-15] MEDS: Pantoprazole Sodium 40 MG Tablet PO (22:18)
[2023-05-15] MEDS: clonazePAM 1 MG Tablet PO (22:18)
--- NOTE | 2023-05-16 03:05 | PCM.HOSP.N ---
Hospitalist Note Received message from nursing staff this evening that patient had not voided since Silva catheter was removed and afternoon. Bladder scan showed 250 cc of urine. Patient was unable to void at all. At 1 AM, another bladder scan was done and showed 650 cc of urine in the bladder. Patient again was unable to void at all. Straight cath was done. In light of this, patient's discharge order was canceled for now. Planning for repeat bladder scan in the morning, if continues to have urinary retention may need to place Silva catheter and discuss plan for discharge.
[2023-05-16 05:10] VITALS: BP 150/74; PULSE 67; RESP 18; TEMP 36.6; O2SAT 92
[2023-05-16] MEDS: Acetaminophen 500 MG Tablet 1000 MG PO ×2 (05:15→14:35)
[2023-05-16 06:14] LABS: Absolute Lymphocyte Count 1.97 X10^3/uL (0.83-4.51); Absolute Neutrophil Count 9.9 X10^3/uL (2.0-7.7); Basophil# 0.06 X10^3/uL; Basophil% 0.5 % (0-1); Eosinophil# 0.28 X10^3/uL; Eosinophils% 2.1 % (0-5); Hematocrit 30.5 % (37-47); Hemoglobin 10.2 g/dL (12.0-15.0); Lymphocyte # 1.97 X10^3/ul (0.83-4.51); Mean Corp Hgb Conc 33.4 g/dL (32-36); Mean Corpuscular Hgb 30.6 pg (27.0-32.0); Mean Corpuscular Volume 91.6 fL (81-99); Mean Platelet Vol. 10.3 fl (6.2-12.0); Monocyte# 0.91 X10^3/uL; Monocyte% 6.9 % (0-10); NRBC Flagged by Analyzer 0 % (0-5); Neutrophil # 9.87 X10^3/uL (2.7-7.7); Platelet Count 236 K/mm3 (150-450); RBC Distribution Width CV 12.7 % (11.6-14.6); RBC Distribution Width SD 42.1 fl (35.1-43.9); Red Blood Count 3.33 M/mm3 (4.2-5.4); White Blood Count 13.2 K/mm3 (4.4-11.0)
[2023-05-16 06:58] LABS: Anion Gap 4 (5-15); BUN 21 mg/dL (7-18); BUN/Creat Ratio 25.4 RATIO (10-20); Calcium,Total 7.4 mg/dL (8.5-10.1); Chloride 102 mmol/L (98-107); Creatinine, Serum 0.83 mg/dL (0.55-1.02); EST Glomerular Filtration Rate 70 mL/min (>60); Est Glom Filt Rate - Afr Amer 85 mL/min (>60); Estimated Creatinine Clearance 51.69 ml/min; Glucose 104 mg/dL (74-106); Potassium 3.6 mmol/L (3.5-5.1); Sodium Level 131 mmol/L (136-145)
[2023-05-16] MEDS: Meloxicam 7.5 MG Tablet PO (10:55)
[2023-05-16] MEDS: Aspirin 81 MG TAB.CHEW PO (10:55)
[2023-05-16] MEDS: Famotidine 20 MG Tablet PO (10:56)
[2023-05-16 10:57] VITALS: BP 149/67; PULSE 70
[2023-05-16] MEDS: Folic Acid 1 MG Tablet 2 MG PO (10:57)
[2023-05-16] MEDS: Metoprolol(XL)Succ 50 MG Tablet PO (10:57)
[2023-05-16] MEDS: clonazePAM 0.5 MG Tablet PO (11:01)
--- NOTE | 2023-05-16 11:43 | DCINST_ITS ---
Discharge Instructions Diet Discharge Diet: Low fat / Low cholesterol Activity Discharge Activity: Return to Normal Activity Weight Bearing Status: Weight bearing as tolerated Dressing / Incision Call your doctor if you observe: Fever of 101 or Higher, Shortness of breath, Swelling in the ankles and Uncontrolled pain Follow Up Care Test Results: Test results from this visit will be discussed in further detail at your follow- up appointment, if applicable. Discharge Plan Admission Admit Date/Time: 05/13/23 11:38 Primary Reason for Your Visit: left hip fracture s/p left hip replacement Attending Provider: Mary Jo Marcano Primary Care Provider: CÉSAR LOVE Consulting Providers: Xander Tolentino Instructions Patient Instructions: Hip Fracture Common Questions, Hip Fracture Surgery ... Additional Instructions / Restrictions: to be discharged with Silva catheter in situ, per urology. Urology recommends discharging on PO tamsulosin 0.4mg daily for urine retention until she sees urology on outpatient basis Discharge Orders/Prescriptions Prescriptions: New aspirin 81 mg capsule 81 mg PO BID Qty: 56 0RF tamsulosin [Flomax] 0.4 mg capsule 0.4 mg PO DAILY Qty: 30 0RF Continued nortriptyline 50 MG capsule 100 mg PO QHS Patient Comments: HAS TO BE TEVA BRAND metoprolol succinate 50 MG tablet extended release 24 hr 100 mg PO BID losartan 25 MG tablet 25 mg PO DAILY folic acid 0.8 MG tablet 1,600 mg PO DAILY cholecalciferol (vitamin D3) [Vitamin D3] 1,000 UNIT capsule 1,000 unit PO QHS Folbic RF 1 EACH tablet 1,000 mcg PO QWEEK esomeprazole magnesium [Nexium] 40 MG capsule 40 mg PO QHS clonazepam [Klonopin] 0.5 MG tablet 0.5 mg PO BREAKFAST clonazepam 0.5 MG tablet 0.5 mg PO Q6H PRN PRN (Reason: Anxiety) clonazepam 1 MG tablet 1 mg PO QHS oxycodone 5 MG tablet 5 - 10 mg PO Q4H PRN PRN (Reason: Mod-Severe Pain (4-10/10)) 5 Days Qty: 60 0RF acetaminophen 500 MG tablet 1,000 mg PO Q8 PRN (Reason: fever or pain) Discontinued aspirin 325 MG tablet 81 mg PO QHS Referrals / Follow Up: CÉSAR LOVE [Other] - Within 1 Week CÉSAR LOVE [Other] Jaswinder Yang MD [Med Staff - Active Staff] - Within 1 Week (see for evaluation for urine retention) Xander Tolentino MD [Med Staff - Active Staff] - Within 2 Weeks Disposition Disposition (needs filled in before D/C Order can be placed): Home Health Service
[2023-05-16 14:32] VITALS: BP 154/85; PULSE 72; RESP 17; TEMP 36.4; O2SAT 95
--- NOTE | 2023-05-16 14:36 | DS.PCM_ITS ---
Providers Date of Admission: 05/13/23 Date of Discharge: 05/16/23 Primary Care Physician: CÉSAR LOVE Consultations 05/13/23 12:59 Consult: Orthopedics Routine Consulting Provider: Xander Tolentino Reason for Consult: left hip fracture due to mechanical fall EMERGENT Consult: No MD Notified: Yes Date Notified: 05/13/23 Time Notified: 11:40 Method of Notification: Text Reason For Visit: LEFT HIP FRACTURE DUE TO MECHANICAL FALL Diagnosis Discharge Diagnosis (1) Closed fracture of left hip: Status: Acute Code(s): S72.002A - Fracture of unspecified part of neck of left femur, initial encounter for closed fracture Plan #LLE transcervical femoral neck fracture due to mechanical fall * orthopedic surgery on board * s/p left anterior hip replacement * TOday is POD 1 * on PO tylenol, IV morphine as well as IV toradol prn for pain * PT/OT on board * fall precautions * #Hypertension * BP has improved. * States her blood pressure has been difficult to control nowadays. * On metoprol and losartan. IV hydralazine as needed. * #Hypokalemia: will replaced with IV KCl and trend potassium levels #GERD: On PPI #Depression and anxiety: On nortriptyline DVT prophylaxis: lovenox Code status; full code Disposition; anticipate dc home with home health over the next 24-48 hours Medications at Discharge Home Medications cholecalciferol (vitamin D3) 25 mcg (1,000 unit) capsule (Vitamin D3) 1,000 unit PO QHS BONES 10/14/17 clonazepam 0.5 mg tablet 0.5 mg PO Q6H PRN PRN Anxiety 10/14/17 clonazepam 0.5 mg tablet (Klonopin) 0.5 mg PO BREAKFAST ANXIETY 10/14/17 clonazepam 1 mg tablet 1 mg PO QHS ANXIETY 10/14/17 cyanocobalamin 2 mg-levomefolate penelope 1.13 mg-pyridoxine 25 mg tablet (Folbic RF) 1,000 mcg PO QWEEK HEALTH 10/14/17 esomeprazole magnesium 40 mg capsule,delayed release (Nexium) 40 mg PO QHS STOMACH 10/14/17 folic acid 800 mcg tablet 1,600 mg PO DAILY HEALTH 10/14/17 losartan 25 mg tablet 25 mg PO DAILY BP 10/14/17 metoprolol succinate 50 mg tablet,extended release 24 hr 100 mg PO BID BP 10/14/17 nortriptyline 50 mg capsule 100 mg PO QHS SLEEP 10/14/17 oxycodone 5 mg tablet 5 - 10 mg (1 - 2 x 5 mg) PO Q4H PRN PRN Mod-Severe Pain (4-10/10) 5 days #60 tabs 10/16/17 acetaminophen 500 mg tablet 1,000 mg PO Q8 PRN fever or pain 05/13/23 aspirin 81 mg capsule 81 mg PO BID #56 caps 05/15/23 tamsulosin 0.4 mg capsule (Flomax) 0.4 mg PO DAILY #30 caps 05/16/23 Hospital Course Operations None and - (left anterior hip replacemen) Procedures None Summary of Care Provided Minutes Spent on Discharge: 55 Hospital Course: EVELYN BYRNE, is a 83 F with a PMH as outlined who presents via the ED On 05/13/2023 with a complaint of mechanical fall. She took her dog which has hip dysplasia out. The dog was unable to get up, and so she tried to lift the dog up. She ended up losing her balance and fell. She landed on her left hip. She denied hitting her head and didnt lose consciousness. Review of systems is otherwise negative. Vitals at sharmila e of review were BP of 171/80, HR of 54, RR of 14 nad she was sa turating at 92% on room air. CBC showed hb of 12.9, wbc of 15 and platelets of 321. Chemistry was essentially unremarkable and initial troponin was 4. EKG showed sinus bradycardia. Hip and pelvic x-ray showed nondisplaced impacted left transcervical fracture of the proximal left femur. Chest x-ray showed no acute cardiopulmonary pathology. She was admitted to be managed for left hip fracture due to mechanical fall. Orthopedics was consulted. Patient had left anterior hip replacement on 05/14/2023. She tolerated the surgery well. Postop course was uncomplicated and she felt well. She was placed on p.o. aspirin 81 mg twice daily for 4 weeks for DVT prophylaxis. Patient was discharged home on 05/15/2023. Patient refused a prescription for opiates as she said she does not like them and did not want taking them. She was discharged home. Tylenol for pain. She is follow-up with her PCP and follow-up with orthopedics on outpatient basis Within 2 weeks. Discharged on 05/15/2023 was however counseled because patient could not void. He was noted to have urinary retention and had to have a simpson catheter placed. Despite several attempt, patient couldnt void urine. THis hospitalist spoke to Dr Yang on phone who stated that not much could be done in the hospital as she would have to go with a Simpson catheter in place,a dn follow up with urology on outpatient basis to see if the urinary retention was resolved. Dr. Jordan recommended putting patient on Flomax 0.4 mg daily as he had had success with it in women in 4 to follow-up with him within a week. Patient was seen and examined prior to discharge. She had no active complaints. She complained of not being able to pass urine. Pain was well controlled. Review of systems was otherwise negaive. Labs and vitals reviewed. Home meds reviewed and reconciled. Physical Exam Const alert, oriented x3 and no apparent distress General Appearance: cooperative and well developed HEENT normocephalic, head/scalp atraumatic, hearing grossly normal bilaterally, moist oral mucous membranes and oropharynx normal Mouth: oral and palatal mucosa normal Eyes PERRL and EOMs intact bilaterally Neck no lymphadenopathy, supple and no JVD Lymph Lymphatic: no lymphadenopathy noted Resp normal respiratory effort, normal air movement and clear to auscultation bilaterally Cardio regular rate, regular rhythm, S1 normal heart sound, S2 normal heart sound and no murmurs GI normal to inspection, nondistended, normoactive bowel sounds, soft to palpation, non-tender and non-distended GI Narrative: Simpson catheter in situ Extremity normal capillary refill and no clubbing, cyanosis or edema Extremity Narrative: intact dressing over surgical site on left hip Skin General Skin Exam: no breakdown and turgor normal Neuro oriented x3, CN's II-XII intact bilaterally, moves all extremities and no focal motor deficits Psych thought process normal, cooperative and affect normal Appearance: appropriate Weight / BMI Weight Weight: 197 lb 5.019 oz Body Mass Index (BMI) 30.9 ABG / Lab / Microbiology Data 05/16/23 04:59 05/16/23 04:59 Laboratory: Laboratory Results - last 24 hr 05/16/23 04:59: WBC 13.2 H, RBC 3.33 L, Hgb 10.2 L, Hct 30.5 L, MCV 91.6, MCH 30.6, MCHC 33.4, RDW Std Deviation 42.1, RDW Coeff of Malena 12.7, Plt Count 236, MPV 10.3, Immature Gran % (Auto) 0.500, Neut % (Auto) 75.0 H, Lymph % (Auto) 15.0 L, Johnson % (Auto) 6.9, Eos % (Auto) 2.1, Baso % (Auto) 0.5, Absolute Neuts (auto) 9.9 H, Absolute Lymphs (auto) 1.97, Nucleated RBC % 0, Sodium 131 L, Potassium 3.6, Chloride 102, Carbon Dioxide 25.0, Anion Gap 4 L, BUN 21 H, Creatinine 0.83, Estim Creat Clear Calc 51.69, Est GFR (MDRD) Af Amer 85, Est GFR (MDRD) Non-Af 70, BUN/Creatinine Ratio 25.4 H, Glucose 104, Calcium 7.4 L D/C Instructions Discharge Diet: Low fat / Low cholesterol Discharge Activity: Return to Normal Activity Weight Bearing Status: Weight bearing as tolerated Call your doctor if you observe: Fever of 101 or Higher, Shortness of breath, Swelling in the ankles and Uncontrolled pain Meaningful Use Info Meaningful Use Diagnoses (Choose all that apply): None applicable Discharge Plan Admission Admit Date/Time: 05/13/23 11:38 Primary Reason for Your Visit: left hip fracture s/p left hip replacement Attending Provider: Mary Jo Marcano Primary Care Provider: CÉSAR LOVE Consulting Providers: Xander Tolentino Instructions Patient Instructions: Hip Fracture Common Questions, Hip Fracture Surgery ... Additional Instructions / Restrictions: to be discharged with Simpson catheter in situ, per urology. Urology recommends discharging on PO tamsulosin 0.4mg daily for urine retention until she sees urology on outpatient basis Discharge Orders/Prescriptions Prescriptions: New aspirin 81 mg capsule 81 mg PO BID Qty: 56 0RF tamsulosin [Flomax] 0.4 mg capsule 0.4 mg PO DAILY Qty: 30 0RF Continued nortriptyline 50 MG capsule 100 mg PO QHS Patient Comments: HAS TO BE TEVA [employer]AND metoprolol succinate 50 MG tablet extended release 24 hr 100 mg PO BID losartan 25 MG tablet 25 mg PO DAILY folic acid 0.8 MG tablet 1,600 mg PO DAILY cholecalciferol (vitamin D3) [Vitamin D3] 1,000 UNIT capsule 1,000 unit PO QHS Folbic RF 1 EACH tablet 1,000 mcg PO QWEEK esomeprazole magnesium [Nexium] 40 MG capsule 40 mg PO QHS clonazepam [Klonopin] 0.5 MG tablet 0.5 mg PO BREAKFAST clonazepam 0.5 MG tablet 0.5 mg PO Q6H PRN PRN (Reason: Anxiety) clonazepam 1 MG tablet 1 mg PO QHS oxycodone 5 MG tablet 5 - 10 mg PO Q4H PRN PRN (Reason: Mod-Severe Pain (-06/02)) 5 Days Qty: 60 0RF acetaminophen 500 MG tablet 1,000 mg PO Q8 PRN (Reason: fever or pain) Discontinued aspirin 325 MG tablet 81 mg PO QHS Referrals / Follow Up: CÉSAR LOVE [Other] - Within 1 Week CÉSAR LOVE [Other] Jaswinder Yang MD [Med Staff - Active Staff] - Within 1 Week (see for evaluation for urine retention) Xander Tolentino MD [Med Staff - Active Staff] - Within 2 Weeks Disposition Disposition (needs filled in before D/C Order can be placed): Home Health Service Charges/Coding Visit Charges Inpatient E&M: 53683 Disch Hosp >30min
== END 2023-05-16 14:55 | disposition home health service (06) | DRG 522 ==
LOC: ED 12:03 → MS3 12:04
PROVIDERS: Specialist; Admitting Provider Student in an Organized Health Care Education/Training Program; Emergency Provider Emergency Medicine; Visit Provider Student in an Organized Health Care Education/Training Program
PROC: 0SRB04Z Replacement of Left Hip Joint with Ceramic on Polyethylene Synthetic Substitute, Open Approach (ICD-10-PCS; CPT 27284; principal; 2023-05-14 13:00)
DX: S72.012A Unspecified intracapsular fracture of left femur, initial encounter for closed fracture (principal); E87.6 Hypokalemia; I10 Essential (primary) hypertension; F32.A Depression, unspecified; M16.12 Unilateral primary osteoarthritis, left hip; K21.9 Gastro-esophageal reflux disease without esophagitis; F41.9 Anxiety disorder, unspecified; W18.30XA Fall on same level, unspecified, initial encounter; F17.200 Nicotine dependence, unspecified, uncomplicated; R33.9 Retention of urine, unspecified
CPT/HCPCS: 36415; 71045; 73501; 73502; 76000; 80048; 82962; 84484; 85025; 86850; 86900; 86901; 88305; 88311; 93005; 94668; 97162; 97166; 97802; 99252; 99285; 99406; C1776; J7030; J7120; A4216; G0463; J2310; J2405

== ENCOUNTER → 2023-05-27 | Outpatient (CLI) | payer MEDICARE, SELFPAY ==
--- NOTE | 2023-05-27 16:14 | VDLE_ITS ---
Reason For Study: LLE Pain RIGHT LEFT CFV is compressible, spontaneous, phasic, GSV is normal. competent and demonstrates normal CFV is compressible, spontaneous, phasic, augmentation. competent, and demonstrates normal Procedure augmentation. This is a venous duplex using B-mode, color FV is compressible, spontaneous, phasic, flow and spectral Doppler. competent and demonstrates normal Exam performed in department. augmentation. The exam was diagnostic. POP V is compressible, spontaneous, phasic, The study was technically difficult. competent and demonstrates normal A preliminary report was called and/or faxed augmentation. to [facility]. T/P Trunk is compressible. PTV is compressible. LT PerV is compressible. VL/Venous Duplex US, Unilateral Interpretation Summary Deep veins of the left lower extremity are patent and compressible segmentally. There is no evidence of left lower extremity deep vein thrombosis. The left great saphenous vein cindy ears patent and compressible segmentally. Ordering Physician: Cristopher Sharma Referring Physician: N/A Performed By: Jason Monreal RVT
== END | disposition home or self-care (01) ==
PROVIDERS: Visit Provider Physician Assistant Surgical
DX: M79.605 Pain in left leg (principal)
CPT/HCPCS: 93971

== ENCOUNTER 2024-10-18 13:00 | Outpatient (RCR) | payer MEDICARE, SELFPAY ==
--- NOTE | 2024-09-01 15:29 | HP.PTEVAL ---
Patient's Visit Information Visit Information Visit Information: EVELYN BYRNE is a 84 year old F referred to Physical Therapy by Dr. Mary Bhatt MD with a diagnosis of URGE INCONTINENCE. Date of Evaluation: 09/01/24 Physical Therapist: Janessa Jose PT, Cert MDT Visit Plan Frequency: 1x/Week Duration: 2-4 Months Plan: PF THERAPY FOR STRENGTHENING, LENGTHENING/RELAXATION AND ENDURANCE TRAINING. URINARY URGE AND FREQUENCY EDUCATION. HEALTHY BLADDER AND BACK HABIT EDUCATION. TRAINING IN COORDINATION OF PELVIC FLOOR MUSCULATURE WITH HIP AND CORE (TRANSVERSE ABDOMINUS) MUSCULATURE. CORE STRENGTHENING. POSTURE TRAINING. JEANETTE LE ROM, STRETCHING AND STRENGTHENING. TRAINING IN PROPER ABDOMINAL CAVITY PRESSURE MGMT WITH ADL'S. Subjective Subjective: Work/Leisure: RETIRED. STATES SHE RETIRED AT AGE 67 AND SHE IS A RETIRED INTERNAL MEDICINE PHYSICIAN. Present symptoms: URGE INCONTINENCE. URINE INCONTINENCE/LEAKING 2-3 TIMES A DAY. WEARING DIAPER/MAXI PAD FOR PROTECTION. Present since: INTENSELY 3-4 MONTHS AGO. UNSURE HOW LONG. Is it getting better, worse or staying the same: STAYING THE SAME Commenced as a result of: NO APPARENT REASON OTHER THAN HIP FRACTURE A YEAR AGO. STATES SHE WORE A PATEL HOME AFTER SX AND SHE WAS RESPONSIBLE FOR TAKING IT OUT. SHE STATES THE PATEL WAS IN THE WRONG PLACE AND SHE RELATES SOME OF HER URINARY PROBLEMS POSSIBLY TO THAT. SHE ALSO REPORTS STARTING A MEDICATION FOR DEPRESSION ABOUT 3-4 MONTHS AGO THAT COULD BE RELATED. Worse: BEING AT HOME, CHANGE OF POSITION, WHEN I LOSE TRACK OF TIME AND WAIT TOO LONG TO GO, DRINKING A LOT OF TEA. ALSO HAS SOME LEAKAGE WITH BIG COUGHING AND SNEEZING BUT STATES THIS DOESN'T HAPPEN A LOT. MAIN LEAKAGE IS WITH URGE. Better: GEMTESA SEEMS TO BE HELPING A LITTLE BIT. (HAVE TRIED KEGELS THE WAY I KNOW HOW BUT HASN'T HELPED AND STATES I HONESTLY HAVEN'T BEEN DOING A LOT OF THEM). Previous history/Previous treatment: DENIES HAVING PELVIC FLOOR THERAPY IN THE PAST. NO PRIOR BLADDER SX OR HYSTERECTOMY. HAS NOT HAD CHILDREN. Treatment this episode: GEMTESA X APPROX A WEEK OR SO. Gait: INDEP WITHOUT AD BUT DOES USE WALKING STICK WHEN TRAVELING TO WARN PEOPLE TO BE CAREFUL How long can you delay the need to urinate: 0-5 MINUTES. PATIENT REPORTS SOMETIMES SHE MAKES IT TO THE BATHROOM WHEN SHE GETS URGE AND SOMETIMES SHE DOESN'T AND MOST OF THE TIME SHE DOESN'T. 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 Frequency of Urination: 1-2 TIMES AT NIGHT AND 5-8 TIMES DURING THE DAY FLUID INTAKE: 6-8, 8 oz glasses - ALL OR MOSTLY CAFFINATED Ability to stop urine flow: CAN PARTIALLY DEFLECT THE STREAM Ability to initiate urine stream: YES - NEVER DIFFICULTY Dyspareunia: N/A Bowel Incontinence: OCCASSIONALLY Unexplained weight loss: NO PMH/Recent major surgery: JEANETTE THR'S, JEANETTE TKR'S. (PATIENT STATES SHE DOES NOT HAVE MS). DEPRESSION. ARTHRITIS. PATIENT STATES HER ARTHRITIS IS PRETTY BAD IN HER R FOOT. Objective Objective: Sitting/Standing Posture: SLOUCHED IN SITTING. IN STANDING: R ILIAC CREST HIGHER THAN LEFT. SCOLIOTIC SPINE. INCREASED KYPHOSIS Active Correction of posture: ABLE TO PARTIALLY CORRECT. DOES NOT MAINTAIN. Other Observations: INDEP GAIT WITHOUT AD. INDEP TRANSFERS SIT TO STAND AND REVERSE, SIT TO SUPINE AND REVERSE. Sensory deficit: JEANETTE LE LIGHT TOUCH SENSATION GROSSLY INTACT AND SYMMETRICAL ROM deficit: JEANETTE HIP, HS AND CALF TIGHTNESS. Motor deficit: JEANETTE LE STRENGTH GROSSLY 4/5. Dural Signs: NEGATIVE JEANETTE LE'S. Lumbar mvmt loss: flex - MOD ext - ROSA R SG - ROSA L SG - ROSA LOW BACK STIFFNESS BUT AND REPORTS DISCOMFORT WITH TESTING BUT NW A RESULT. Core strength: FAIR. PATIENT COMMUNICATES A GOOD UNDERSTANDING OF HOW TO CONTRACT AND RELAX PELVIC FLOOR. Palpation: NO ACUTE HIP, PELVIC OR LUMBAR TENDERNESS WITH EXTERNEAL PALPATION. FUNCTIONAL SCREEN: Incontinence Impact Questionnaire Score: 21 Urogenital Distress Inventory Score: 12 Goals Goal 1:: DECREASE URINARY LEAKAGE EPISODES TO ONE OR LESS PER DAY Goal Time Frame: 8-12 Weeks Goal 2:: PATIENT WILL SUCCESSFULLY DELAY VOIDING LONG NEEDED WHEN URGENCY OCCURS TO SUCCESSFULLY MAKE IT TO THE BATHROOM. Goal Time Frame: 6-8 Weeks Goal 3:: PATIENT WILL DEMONSTRATE/COMMUNICATE 10 CONSISTENT AND CONSECUTIVE 10 SECOND PELVIC FLOOR MUSCLE CONTRACTIONS TO DEMONSTRATE IMPROVED PELVIC FLOOR ENDURANCE. Goal Time Frame: 8-12 Weeks Goal 4:: DEVELOP HEALTHY FLUID INTAKE HABITS WITH FLUID INTAKE OF ? BODY WEIGHT IN OUNCES PER DAY AND 2/3 BEING WATER. Goal Time Frame: 6-8 Weeks Goal 5:: NORMALIZE VOIDING FREQUENCEY TO EVERY 2-3 HOURS. Goal Time Frame: 6-8 Weeks Goal 6:: PATIENT WILL BE INDEP WITH A HEP/HOME INSTRUCTIONS FOR CONTINUED IMPROVEMENT ONCE FORMAL PHYSICAL THERAPY CONCLUDES. Goal Time Frame: 8-12 Weeks Rehabilitation Potential Physical Therapy Diagnosis: CORE AND LE WEAKNESS AND STIFFNESS. SIGNS OF MIXED INCONTINENCE. Rehabilitation Potential: Good Anticipated Interventions Patient/Client Instruction: Educate patient on: Condition, Plan of Care and Risk Factors For the Purpose of:: To improve self management Therapeutic Exercise to Include: Strength training, Endurance training, Coordination, Postural training, Flexibilty training and Neuromotor development For the Purpose of:: To improve muscle performance and motor function, To improve ability of physical actions for home/community/work/leisure and To increase flexibility/ROM Text: Thank you for the opportunity to evaluate your patient. For Medicare and Medicare HMO plans, please review the plan of care and approve it. It will need to be FAXED BACK to us at [phone] for Medicare purposes. For Medicare only, by signing this I certify the plan of care. Please let me know if there are questions or concerns regarding this plan of care. Physician Signature: Date:
== END 2024-10-18 19:00 | disposition home or self-care (01) ==
LOC: PT 13:00
PROVIDERS: Referring Provider Urology; Visit Provider Urology
DX: N39.41 Urge incontinence (principal)
CPT/HCPCS: 97162; 97530

== ENCOUNTER 2025-04-17 13:27 | Emergency (ER) | payer MEDICARE, SELFPAY ==
[2025-04-17 13:28] VITALS: BP 93/61; PULSE 68; RESP 19; TEMP 36; O2SAT 100
--- NOTE | 2025-04-17 14:22 | EKG12_ITS ---
Test Reason : DIZZINES/ABD PAIN Blood Pressure : */* mmHG Vent. Rate : 59 BPM Atrial Rate : 59 BPM P-R Int : 176 ms QRS Dur : 128 ms QT Int : 474 ms P-R-T Axes : 31 14 44 degrees QTcB Int : 469 ms Sinus bradycardia Right bundle branch block Inferior infarct , age undetermined Abnormal ECG Confirmed by JOLENE ROSE ([id number]), image editor JOSEPH SÁNCHEZ ([id number]) on 04/18/2025 1:06:11 PM Referred By: Confirmed By: JOLENE ROSE
--- NOTE | 2025-04-17 14:22 | CT_ITS ---
PROCEDURE: ABDOMEN/PELVIS W IV CONT ONLY 04/17/2025 REASON FOR EXAM: RLQ PAIN TECHNIQUE: ABDOMEN/PELVIS W IV CONT ONLY Coronal and Sagittal reconstruction series were provided. CONTRAST: Isovue-300 VOLUME: 95 mL One or more dose reduction techniques were used (e.g., Automated exposure control, adjustment of the mA and/or kV according to patient size, use of iterative reconstruction technique. RADIATION DOSE SUMMARY: CTDlvol: 14+ 16 mGy DLP: 657 mGycm FINDINGS: The peripheral soft tissues are unremarkable. Degenerative changes of the spine. Scoliosis. Degenerative changes of the sacroiliac joints. Bilateral hip arthroplasties. Liver is unremarkable. Surgically absent gallbladder. The pancreas, spleen, adrenals are unremarkable. Normal caliber large and small bowel. Dense colonic stool. No surrounding inflammatory changes. CT/Abdomen/Pelvis W IV Cont ONLY IMPRESSION: No acute abnormalities of the abdomen or pelvis. Reading Location: [id number]
--- NOTE | 2025-04-17 14:23 | ED.VIS.GI ---
HPI HPI - GI History of Present Illness Chief Complaint: Constipation Informant: patient Narrative Narrative: Presents with waxing waning pain right lower quadrant. Intermittent nausea no vomiting. No bowel movement for 4 days is not a typical for her. She is passing gas. Cholecystectomy in 2002. No other abdominal surgeries. No urinary symptoms. States lightheaded for the last 4 days due to decreased p.o. intake. She does not feel well to drink fluids. She is passing gas. Is on medications for blood pressure. History of tobacco denies asthma or COPD. Denies any cardiac history. Prior similar symptoms: No PFSH PFSH Medical History History of osteoarthritis History of blood clots History of cataract Chronic GERD Arthropathy of hip Knee arthropathy Smoker Closed fracture of left hip Fall History of hypertension GERD (gastroesophageal reflux disease) Depression Anxiety Hypertension Home Medications ?Medication ?Instructions ?Recorded ?Last Taken ?Type cholecalciferol (vitamin D3) 25 1,000 unit PO QHS BONES 10/14/17 05/12/23 History mcg (1,000 unit) capsule (Vitamin D3) clonazepam 0.5 mg tablet 0.5 mg PO Q6H PRN PRN Anxiety 10/14/17 Unknown History clonazepam 0.5 mg tablet (Klonopin) 0.5 mg PO BREAKFAST ANXIETY 10/14/17 05/12/23 History clonazepam 1 mg tablet 1 mg PO QHS ANXIETY 10/14/17 05/12/23 History cyanocobalamin 2 mg-levomefolate 1,000 mcg PO QWEEK HEALTH 10/14/17 05/09/23 History penelope 1.13 mg-pyridoxine 25 mg tablet (Folbic RF) esomeprazole magnesium 40 mg 40 mg PO QHS STOMACH 10/14/17 Unknown History capsule,delayed release (Nexium) folic acid 800 mcg tablet 1,600 mg PO DAILY HEALTH 10/14/17 Unknown History losartan 25 mg tablet 25 mg PO DAILY BP 10/14/17 Unknown History metoprolol succinate 50 mg 100 mg PO BID BP 10/14/17 05/13/23 History tablet,extended release 24 hr nortriptyline 50 mg capsule 100 mg PO QHS SLEEP 10/14/17 05/12/23 History oxycodone 5 mg tablet 5 - 10 mg (1 - 2 x 5 mg) PO Q4H 10/16/17 Unknown Rx PRN PRN Mod-Severe Pain (4-10/10) 5 days #60 tabs acetaminophen 500 mg tablet 1,000 mg PO Q8 PRN fever or pain 05/13/23 Unknown History aspirin 81 mg capsule 81 mg PO BID #56 caps 05/15/23 Unknown Rx tamsulosin 0.4 mg capsule (Flomax) 0.4 mg PO DAILY #30 caps 05/16/23 Unknown Rx vibegron 75 mg tablet (Gemtesa) 75 mg PO QDAY 09/28/24 Unknown History Allergy/AdvReac Type Severity Reaction Status Date / Time brexpiprazole (From [employer]) Allergy Mild Other Verified 04/17/25 13:29 gluten Allergy Other Verified 04/17/25 13:29 JENNIFER Inhibitors AdvReac Other Verified 04/17/25 13:29 codeine AdvReac Other Verified 04/17/25 13:29 Family History Other Anxiety Arthritis CVA (cerebral vascular accident) Cancer Depression Diabetes Psychiatric care Surgical History History of cholecystectomy History of knee replacement Social History Smoking Status: Current every day smoker tobacco type: cigarettes how long ago did patient quit smoking: close to a pack a day alcohol intake: never substance use type: does not use additional social history: pt denies vaping, denies marijuana use, denies edibles, denies ibuprofen use, uses aspirin every day 81 mg. ROS ROS ED Constitutional Constitutional ED: Denies chills, fever(s) or sweats ENT ENT ED: Denies sore throat Cardiovascular Cardiovascular: Reports other Details: Lightheaded ; Denies chest pain, leg edema, palpitations or racing heartbeat Respiratory/Chest Respiratory/Chest: Denies cough, dyspnea or dyspnea on exertion Gastrointestinal Gastrointestinal: Reports abdominal pain, constipation and nausea; Denies diarrhea or vomiting Genitourinary Genitourinary ED: Denies dysuria, hematuria or urinary frequency Musculoskeletal Musculoskeletal: Denies back pain, extremity pain or neck pain Integumentary Denies rash or wounds Neurologic Neurologic: Denies headache(s), paresthesias or weakness EXAM Physical Exam Const Vital Signs: 04/17/25 13:28 04/17/25 15:27 04/17/25 16:47 Temperature 96.8 F L Temperature Source Temporal Pulse Rate 68 61 70 Respiratory Rate 19 H 13 17 Blood Pressure 93/61 166/71 H 205/74 H Blood Pressure Mean 71 102 117 Pulse Ox 100 97 95 Oxygen Delivery Method Room Air Room Air Room Air 04/17/25 17:20 04/17/25 17:39 Temperature 96.8 F L Temperature Source Pulse Rate 64 64 Respiratory Rate 17 Blood Pressure 194/85 H 159/79 H Blood Pressure Mean 121 105 Pulse Ox 92 92 Oxygen Delivery Method Room Air Positive well nourished and well developed General Appearance ED: well developed and NAD HEENT Reports dry mucous membranes normocephalic and atraumatic Mouth ED: Yes dry mucous membranes Mouth: dry mucous membranes Eyes General Eye ED: Yes normal appearance of both eyes Neck full ROM Chest Wall Chest: Negative for tenderness Resp normal respiratory effort and normal air movement Effort and Inspection: symmetric chest movement; Negative for respiratory distress Cardio regular rate, regular rhythm and no murmurs Peripheral Pulses: pulses 2+ throughout GI normal to inspection, nondistended, normoactive bowel sounds GI Narrative: Tender to palpation right lower quadrant. No guarding or rebound. Palpation: Negative for guarding or rebound tenderness present Extremity normal to inspection General Extremety ED: Negative for edema or tenderness General Extremity: Negative for edema Neuro oriented x3 and no sensory deficits noted Sensorium / Orientation: awake and alert Skin no rashes or lesions noted and no wounds MDM MDM MDM Narrative Medical decision making narrative: Interventions / MDM: Differential diagnosis: Abdominal pain, constipation, elevated blood pressure, dehydration Diagnosis considered but do not suspect: N/A My EKG interpretation: Sinus rate of 59, no ST changes. Right bundle branch block QTc 469. Chronic right bundle branch from April 2023. Imaging independently reviewed and interpreted by myself: CT abdomen pelvis IV contrast: No visualized appendix however no inflammatory changes in the area. Right sided colonic stool buildup. External documents reviewed: N/A Test considered but not ordered:N/A ED course: 4-day history worsening pain right lower quadrant waxing and waning. Dry mucous membranes decreased p.o. intake. Denies cardiac history. Lightheaded symptoms. Obtain EKG will check abdominal labs. She declines any pain or nausea medicine at this time. Will give IV fluids. CT abdomen pelvis IV contrast for further evaluation. CT scan nonvisualized appendix however no inflammatory change in the area. Abdominal labs are all normal. Clinically is feeling better. Mild pain reevaluation. I reviewed the CT imaging right-sided colonic buildup and this was shown to the patient. She states she uses lactulose to help with her bowel movements. She will use this when she gets home. Blood pressure was transiently elevated when it was 93/61 on arrival. No headaches no chest pains. She is on metoprolol. She will monitor blood pressure. She will follow-up with her PCP. All questions were answered. Re-evaluation: stable Disposition discussed with patient/family/significant other: Patient Case discussed with consulting clinician: N/A This note was generated with [employer] dictation software. It may contain incorrect words, spelling, and punctuation that were not noted in checking the note before signing. Lab Data Attestation: I reviewed the patient's lab results. Labs: Laboratory Results - last 24 hr 04/17/25 14:35 WBC 10.0 RBC 5.00 Hgb 15.1 H Hct 42.5 MCV 85.0 MCH 30.2 MCHC 35.5 RDW Std Deviation 36.7 RDW Coeff of Malena 11.9 Plt Count 367 MPV 9.5 Immature Gran % (Auto) 0.400 Neut % (Auto) 69.5 Lymph % (Auto) 21.4 Saline % (Auto) 7.4 Eos % (Auto) 0.7 Baso % (Auto) 0.6 Absolute Neuts (auto) 6.9 Absolute Lymphs (auto) 2.14 Nucleated RBC % 0 Sodium 134 Potassium 3.7 Chloride 95 L Carbon Dioxide 26.3 Anion Gap 13 BUN 15 Creatinine 1.03 Estim Creat Clear Calc 43.79 L Est GFR (MDRD) Non-Af 54 L BUN/Creatinine Ratio 14.9 Glucose 112 H Calcium 9.6 Total Bilirubin 0.46 AST 24 ALT 14 Alkaline Phosphatase 136 H Total Protein 7.0 Albumin 4.2 Globulin 2.8 Albumin/Globulin Ratio 1.5 Lipase 23 Radiography Diagnostic Testing: Clinical Impression(s) from Imaging Studies Abdomen/Pelvis CT 04/17/25 14:22 IMPRESSION: No acute abnormalities of the abdomen or pelvis. Reading Location: [facility] Discharge Plan Triage Chief Complaint: Constipation ED Provider: Garry Urban Dx/Rx/DC Orders Clinical Impression: Constipation, Abdominal pain, Dehydration, Elevated blood pressure reading Instructions: Dehydration, ED Constipation (Adult) Prescriptions: No Action Gemtesa 75 mg tablet 75 mg PO QDAY nortriptyline 50 MG capsule 100 mg PO QHS Patient Comments: HAS TO BE [employer] metoprolol succinate 50 MG tablet extended release 24 hr 100 mg PO BID losartan 25 MG tablet 25 mg PO DAILY folic acid 0.8 MG tablet 1,600 mg PO DAILY cholecalciferol (vitamin D3) [Vitamin D3] 1,000 UNIT capsule 1,000 unit PO QHS Folbic RF 1 EACH tablet 1,000 mcg PO QWEEK esomeprazole magnesium [Nexium] 40 MG capsule 40 mg PO QHS clonazepam [Klonopin] 0.5 MG tablet 0.5 mg PO BREAKFAST clonazepam 0.5 MG tablet 0.5 mg PO Q6H PRN PRN (Reason: Anxiety) clonazepam 1 MG tablet 1 mg PO QHS oxycodone 5 MG tablet 5 - 10 mg PO Q4H PRN PRN (Reason: Mod-Severe Pain (4-1010)) 5 Days Qty: 60 0RF acetaminophen 500 MG tablet 1,000 mg PO Q8 PRN (Reason: fever or pain) aspirin 81 mg capsule 81 mg PO BID Qty: 56 0RF tamsulosin [Flomax] 0.4 mg capsule 0.4 mg PO DAILY Qty: 30 0RF Activity Restrictions/Additional Instructions: Your CT scan no acute inflammatory findings. Right sided stool buildup with constipation concerns. Use your lactulose. Abdominal labs were normal. Creatinine 1.03 with GFR 54. Continue oral fluids for hydration. Your blood pressure was initially lower than 90s however went up to 200s transiently down to 190s. Continue metoprolol, follow-up with your doctor. Print Language: Citizen Of [place] Disposition Disposition: Home, Self Care Discharge Date/Time: 04/17/25 17:43
[2025-04-17] MEDS: 0.9% Normal Saline (1000mL) 1,000 ML 1000 ML IV (14:37)
[2025-04-17 14:38] VITALS: BMI 25.9
[2025-04-17 14:48] LABS: Hematocrit 42.5 % (37-47); Hemoglobin 15.1 g/dL (12.0-15.0); Immature Granulocytes Count 0.040 X10^3/uL (0.0-0.0); Mean Corp Hgb Conc 35.5 g/dL (32-36); Mean Corpuscular Volume 85.0 fL (81-99); Mean Platelet Vol. 9.5 fl (6.2-12.0); NRBC Flagged by Analyzer 0 % (0-5); Platelet Count 367 K/mm3 (150-450); RBC Distribution Width CV 11.9 % (11.6-14.6); RBC Distribution Width SD 36.7 fl (35.1-43.9); Red Blood Count 5.00 M/mm3 (4.2-5.4); White Blood Count 10.0 K/mm3 (4.4-11.0)
[2025-04-17] MEDS: 0.9% Normal Saline (1000mL) 1,000 ML 999 ML IV (15:13)
[2025-04-17 15:27] VITALS: BP 166/71; PULSE 61; RESP 13; O2SAT 97
[2025-04-17 15:56] LABS: AST(SGOT) 24 U/L (<=31); Alanine Aminotransfer ALT/SGPT 14 U/L (<=34); Albumin, Serum 4.2 g/dL (3.4-4.8); Alkaline Phosphatase 136 U/L (35-104); Anion Gap 13 (5-15); BUN 15 mg/dL (4-19); BUN/Creat Ratio 14.9 RATIO (10-20); Calcium,Total 9.6 mg/dL (7.6-11.0); Carbon Dioxide 26.3 mmol/L (21.0-32.0); Chloride 95 mmol/L (98-108); Estimated Creatinine Clearance 43.79 ml/min (50-250); Globulin 2.8 g/dL (2.2-4.2); Glucose 112 mg/dL (70-99); Lipase 23 U/L (13-75); Potassium 3.7 mmol/L (3.3-5.1)
[2025-04-17 16:47] VITALS: BP 205/74; PULSE 70; RESP 17; O2SAT 95
--- NOTE | 2025-04-17 17:17 | ED.RN ---
Dr ferreira notified of high BP
[2025-04-17 17:20] VITALS: BP 194/85; PULSE 64; O2SAT 92
[2025-04-17 17:39] VITALS: BP 159/79; PULSE 64; RESP 17; TEMP 36; O2SAT 92
== END 2025-04-17 17:43 | disposition home or self-care (01) ==
PROVIDERS: Emergency Provider Emergency Medicine; Visit Provider Emergency Medicine
DX: K59.00 Constipation, unspecified (principal); E86.0 Dehydration; R03.0 Elevated blood-pressure reading, without diagnosis of hypertension; R10.9 Unspecified abdominal pain; I45.10 Unspecified right bundle-branch block; F17.210 Nicotine dependence, cigarettes, uncomplicated
CPT/HCPCS: 74177; 80053; 83690; 85025; 93005; 96360; 96361; 99284; Q9967